=== PATIENT | male | born 1960 | race Caucasian/White ===

== ENCOUNTER → 2018-03-11 07:07 | Outpatient (CLI) | payer OTHER, SELFPAY ==
--- NOTE | 2018-03-11 | DI.US.S_ITS ---
PROCEDURE: US RENAL COMPLETE INDICATIONS: HISTORY LEFT RCC, PARTIAL NEPHRECTOMY TECHNIQUE: Real-time scanning was performed of the kidneys and bladder, with image documentation. COMPARISON: [facility], US, RENAL COMPLETE, 05/10/2015, 7:29. [facility], CT, ABDOMEN/PELVIS WITH CONTRAST, 02/20/2010, 16:50. [facility], US, RENAL COMPLETE, 03/12/2017, 8:57. FINDINGS: Kidneys: Kidneys are normal in size. Right kidney measures 10.3 cm long; left kidney measures 10.5 cm long. Right renal cortical thickness is 1.8 cm; left renal cortical thickness is 1.9 cm. Renal cortical echotexture is normal. No hydronephrosis or nephrolithiasis. No suspicious solid mass lesions. Stable appearance of left renal peripelvic cyst measuring 1.1 cm and there is additionally a new peripelvic cyst measuring 1.5 cm. Bladder: Pre-void bladder volume is 47 mL. Post-void residual is 24 mL. Pre-void images demonstrate no intraluminal masses or stones. On pre-void images, neither ureteral jets are noted with color Doppler interrogation. (Of note, ureteral jets may not be detectable in up to 25% of cases due to insufficient differences in specific gravity between ureteral and bladder urine). Miscellaneous: No free pelvic fluid. IMPRESSION: Left renal peripelvic cysts otherwise normal appearance of the kidneys. Dictated by: Kendell KAY Interpreted: Jona Petty MD on 03/11/2018 at 9:12 Approved by: Jona Petty M.D. on 03/11/2018 at 15:44
== END ==
PROVIDERS: Visit Provider Internal Medicine
DX: N28.1 Cyst of kidney, acquired (principal); Z85.528 Personal history of other malignant neoplasm of kidney
CPT/HCPCS: 76770

== ENCOUNTER → 2018-03-12 12:19 | Outpatient (CLI) | payer OTHER, SELFPAY ==
--- NOTE | 2018-03-12 | DI.RAD.S_ITS ---
PROCEDURE: XR CHEST 2V INDICATIONS: ACUTE BRONCHITIS TECHNIQUE: 2 views of the chest were acquired. COMPARISON: [facility], , CHEST 1 VIEW, 09/06/2008, 13:25. FINDINGS: Surgical changes and devices: None. Lungs and pleura: No pleural effusions or pneumothorax. Lungs are clear. Mediastinum: Mediastinal contours are normal. Heart size is normal. Bones and chest wall: No suspicious bony abnormalities. Soft tissues appear unremarkable. IMPRESSION: No pneumonia found, normal for age. Dictated by: Jona Petty M.D. on 03/12/2018 at 12:58 Approved by: Jona Petty M.D. on 03/12/2018 at 12:58
== END ==
PROVIDERS: PCP Internal Medicine; Visit Provider Internal Medicine
DX: J20.9 Acute bronchitis, unspecified (principal)
CPT/HCPCS: 71046

== ENCOUNTER → 2019-03-02 14:16 | Outpatient (ROUT) | payer OTHER, SELFPAY ==
[2019-03-02 15:54] LABS: Prostate Specific Antigen 1.04 ng/mL (0.10-4.00)
== END ==
PROVIDERS: PCP Internal Medicine; Visit Provider Internal Medicine
DX: Z00.00 Encounter for general adult medical examination without abnormal findings (principal)
CPT/HCPCS: 84153

== ENCOUNTER → 2019-03-05 08:37 | Outpatient (CLI) | payer OTHER, SELFPAY ==
--- NOTE | 2019-03-05 | DI.US.S_ITS ---
PROCEDURE: US RENAL COMPLETE INDICATIONS: MALIGNANT NEOPLASM OF UNSPECIFIED KIDENEY, EXCEPT RENAL PELV TECHNIQUE: Real-time scanning was performed of the kidneys and bladder, with image documentation. COMPARISON: [facility], CT, CHEST ABDOMEN PELVIS WITH CONTRAST, 08/09/2010, 8:24. [facility], US, RENAL COMPLETE, 03/12/2017, 8:57. [facility], US, US RENAL COMPLETE, 03/11/2018, 7:28. FINDINGS: Kidneys: Kidneys are normal in size. Right kidney measures 10.4 cm long; left kidney measures 10.3 cm long. Right renal cortical thickness is 1.3 cm; left renal cortical thickness is 1.5 cm. Renal cortical echotexture is normal. No hydronephrosis or nephrolithiasis. No suspicious solid mass lesions. A couple of simple appearing parapelvic cysts are noted in left kidney measuring 1.5 x 1.0 x 1.1 cm (previously 1.1 x 1.1 x 1 .1 cm) and 1.9 x 0.9 x 0.6 cm (previously 1.5 x 0.6 x 0.7 cm). Bladder: Pre-void bladder volume is 468 mL. Post-void residual is 52 mL. Pre-void images demonstrate no intraluminal masses or stones. On pre-void images, both ureteral jets are noted with color Doppler interrogation. (Of note, ureteral jets may not be detectable in up to 25% of cases due to insufficient differences in specific gravity between ureteral and bladder urine). Miscellaneous: No free pelvic fluid. IMPRESSION: 1. A couple of simple appearing parapelvic cysts in left kidney, slightly increased in size. No solid renal masses. 2. 52-mL post void residual in the urinary bladder. Dictated by: Lakeisha Strong M.D. on 03/05/2019 at 11:33 Approved by: Lakeisha Strong M.D. on 03/05/2019 at 11:39
== END ==
PROVIDERS: PCP Internal Medicine; Visit Provider Internal Medicine
DX: C64.9 Malignant neoplasm of unspecified kidney, except renal pelvis (principal); N28.1 Cyst of kidney, acquired
CPT/HCPCS: 76770

== ENCOUNTER → 2019-04-08 08:52 | Outpatient (CLI) | payer OTHER, SELFPAY ==
--- NOTE | 2019-04-08 | DI.RAD.S_ITS ---
PROCEDURE: XR WRIST RT MIN 3V INDICATIONS: R wrist pain TECHNIQUE: 4 views of the wrist were acquired. COMPARISON: [facility], , HAND 3V RIGHT, 03/21/2016, 9:09. [facility], , WRIST MINIMUM 3 VIEWS LEFT, 09/17/2010, 16:57. FINDINGS: Bones: No acute fractures or dislocations. No suspicious bony lesions. Trace degenerative changes of the first carpometacarpal and first metacarpal-phalangeal joints noted. 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 Scaphoid view: Scaphoid appears intact. Soft tissues: No suspicious soft tissue calcifications. IMPRESSION: No acute osseous abnormality of the right wrist. Trace degenerative changes of the right first carpometacarpal joint and right first metacarpal-phalangeal joint noted. Dictated by: Buck Miller M.D. on 04/08/2019 at 13:08 Approved by: Buck Miller M.D. on 04/08/2019 at 13:38
== END ==
PROVIDERS: PCP Internal Medicine; Visit Provider Internal Medicine
DX: M25.531 Pain in right wrist (principal)
CPT/HCPCS: 73110

== ENCOUNTER → 2019-04-23 07:32 | Outpatient (CLI) | payer OTHER, SELFPAY ==
--- NOTE | 2019-04-23 | DI.MRI.S_ITS ---
PROCEDURE: MR CERVICAL SPINE WO CON INDICATIONS: Radiculopathy, cervical region TECHNIQUE: Noncontrast sagittal T1 spin echo and T2 fast spin echo, sagittal STIR, foraminal oblique sagittal T2 fast spin echo, and axial gradient echo or T2 fast spin echo through the cervical spine. COMPARISON: [facility], SPINE CERVICAL MIN 4VW, 11/19/2012, 14:47. [facility], MR, C-SPINE WITHOUT CONTRAST, 03/28/2009, 8:18. [facility], MR, C-SPINE WITHOUT CONTRAST, 06/21/2016, 17:23. FINDINGS: Image quality: Excellent. Alignment and Curvature: There is normal bony alignment. Bone Marrow: Reactive endplate change is noted adjacent to the C5-C6 and C6-C7 discs. Spinal Cord: Visualized spinal cord has normal size and signal. No cerebellar tonsillar herniation. Paraspinous Soft Tissues: No paravertebral masses. Prevertebral soft tissues are normal in thickness. C2-C3: Loss of disc signal. No central stenosis. Mild left facet hypertrophy. Mild left neural foraminal narrowing. No neural compression. C3-C4: Loss of disc signal. No central stenosis. Mild left facet hypertrophy. Mild left neural foraminal narrowing. No neural compression. C4-C5: Loss of the signal. Mild, diffuse disc bulge. No central stenosis Mild bilateral facet hypertrophy. Mild right uncovertebral joint hypertrophy. Severe right and mild left neural foraminal narrowing with compression of the exiting right C5 nerve root. C5-C6: Loss of disc signal and height. Mild, diffuse disc bulge. Mild narrowing of the central canal. Mild bilateral facet hypertrophy. Moderate right and mild left uncovertebral joint hypertrophy. Severe right and moderate left neural foraminal narrowing with compression of the exiting right C6 nerve root. C6-C7: Loss of disc signal and height. Mild, diffuse disc bulge. Mild narrowing of the central canal. Mild bilateral facet hypertrophy. Mild bilateral uncovertebral joint hypertrophy. Severe bilateral neural foraminal narrowing and compression of the exiting C7 nerve roots. C7-T1: Normal appearance. IMPRESSION: 1. Multilevel degenerative disc disease. 2. Multilevel facet and uncovertebral arthropathy. 3. Mild C5-C6 and C6-C7 central canal narrowing. 4. Severe bilateral C6-C7 and neural foraminal narrowing. Severe right and moderate left C5-C6 with neural foraminal narrowing. Severe right and mild left C4-C5 neural foraminal narrowing. Mild left C2-C3 and C3-C4 neural foraminal narrowing. 5. Compression of the exiting right C5 nerve root, exiting right C6 nerve root and exiting bilateral C7 nerve roots secondary to neural foraminal narrowing. Dictated by: Zoya Yang MD, PhD on 04/23/2019 at 11:56 Approved by: Zoya Yang MD, PhD on 04/23/2019 at 12:20
== END ==
PROVIDERS: PCP Internal Medicine; Visit Provider Internal Medicine
DX: M47.22 Other spondylosis with radiculopathy, cervical region (principal); M50.121 Cervical disc disorder at C4-C5 level with radiculopathy; M48.02 Spinal stenosis, cervical region
CPT/HCPCS: 72141

== ENCOUNTER → 2019-05-20 06:46 | Outpatient (CLI) | payer OTHER, SELFPAY ==
--- NOTE | 2019-05-20 | DI.MRI.S_ITS ---
PROCEDURE: MR LUMBAR SPINE WO CON INDICATIONS: Radiculopathy, lumbar region TECHNIQUE: Noncontrast sagittal T1 spin echo and T2 fast echo, sagittal STIR, axial T1 and T2 fast spin echo through the lumbar spine. In cases with scoliosis, additional coronal T2 fast spin echo may be performed. COMPARISON: None. FINDINGS: Image quality: Excellent. Alignment and Curvature: There is normal bony alignment. Bone Marrow: Respiratory changes and adjacent to the L4-L5 and L5-S1 discs. No acute vertebral body compression fractures. Spinal Cord: Conus medullaris terminates at the L1 level. Visualized cord demonstrates normal signal and size. Paraspinous Soft Tissues: No paravertebral masses. L1-L2: Slight loss of the signal. Minimal, diffuse disc bulge. No central stenosis. No neural foraminal narrowing. No neural compression. L2-L3: Loss of signal and slight loss of disc height. Moderate, diffuse disc bulge. Small right central disc protrusion. Mild narrowing of the central canal. Mild bilateral neural foraminal narrowing. No neural compression. Fissure noted in the posterior anulus. L3-L4: A loss of the signal. Moderate, diffuse disc bulge. Mild narrowing of the central canal. Mild bilateral neural foraminal narrowing. No neural compression. L4-L5: Loss of signal and height. Moderate, diffuse disc bulge and small central disc protrusion. Mild narrowing of the central canal. Mild right and moderate left neural foraminal narrowing. No neural compression. Fissure noted in the posterior anulus. L5-S1: Loss of disc signal and slight loss of disc height. Mild, diffuse disc bulge. No central stenosis. Moderate right neural foraminal narrowing. No neural compression. Fissure noted in the posterior anulus. IMPRESSION: 1. Multilevel degenerative disc disease. 2. Mild L2-L3, L3-L4 and L4-L5 central canal narrowing. 3. Moderate right L5-S1 neural foraminal narrowing. Mild right and moderate left L4-L5 neural foraminal narrowing. Mild bilateral L2-L3 and L3-L4 neural foraminal narrowing. 4. No neural compression 5. L2-L3, L3-L4 and L4-L5 disc annulus fissures. Dictated by: Zoya Yang MD, PhD on 05/20/2019 at 11:47 Approved by: Zoya Yang MD, PhD on 05/20/2019 at 13:13
== END ==
PROVIDERS: PCP Internal Medicine; Visit Provider Internal Medicine
DX: M51.16 Intervertebral disc disorders with radiculopathy, lumbar region (principal); M51.17 Intervertebral disc disorders with radiculopathy, lumbosacral region; M48.061 Spinal stenosis, lumbar region without neurogenic claudication; M48.07 Spinal stenosis, lumbosacral region
CPT/HCPCS: 72148

== ENCOUNTER 2019-06-12 17:02 | Emergency (ER) | payer OTHER, SELFPAY ==
[2019-06-12 17:07] VITALS: BP 124/84; PULSE 79; RESP 18; TEMP 36.1; O2SAT 98; BMI 25.8
--- NOTE | 2019-06-12 17:12 | DI.RAD.S_ITS ---
PROCEDURE: XR CHEST 1V INDICATIONS: CHEST PAIN TECHNIQUE: One view of the chest was acquired. COMPARISON: [facility], CR, XR CHEST 2V, 03/12/2018, 12:04. FINDINGS: Surgical changes and devices: None. Lungs and pleura: Lungs are clear. No pleural effusions or pneumothorax. Mediastinum: Mediastinal contours appear normal. Heart size is normal. Bones and chest wall: No suspicious bony lesions. Overlying soft tissues appear unremarkable. IMPRESSION: No acute disease Dictated by: Wesley Hsieh M.D. on 06/12/2019 at 17:31 Approved by: Wesley Hsieh M.D. on 06/12/2019 at 17:32
[2019-06-12 17:45] LABS: Add Manual Diff / Slide Review NO; Basophils Absolute Auto 100 /uL (0-100); Basophils Percent Auto 0.9 % (0-2); Eosinophils Absolute Auto 600 /uL (0-450); Hematocrit 45.5 % (41-53); Hemoglobin 15.5 g/dL (13.5-17.5); Lymphocytes Absolute Auto 2300 /uL (1100-4500); Lymphocytes Percent Auto 27.1 % (25-40); Mean Corpuscular HGB Conc 34.1 % (30-36); Mean Corpuscular Hemoglobin 30.8 PG (26-34); Mean Corpuscular Volume 90.4 fL (80-100); Monocytes Absolute Auto 700 /uL (0-900); Monocytes Percent Auto 7.7 % (3-14); Neutrophils Absolute Auto 4900 /uL (1500-7000); Neutrophils Percent Auto 57.3 % (50-75); Platelet Count 248 X10^3/uL (150-400); Red Blood Cell Count 5.03 X10^6/uL (4.5-5.9); Red Cell Distribution Width 14.2 % (11.6-14.8); White Blood Cell Count 8.5 X10^3/uL (4.5-11.0)
[2019-06-12] MEDS: ASPIRIN 81 MG CHEW TAB 324 MG PO (17:51)
[2019-06-12] MEDS: SODIUM CHLORIDE 0.9% 1,000 ML 150 ML IV (17:52)
[2019-06-12 17:57] LABS: Alanine Aminotransferase 39 IU/L (<50); Albumin 4.7 g/dL (3.5-5.0); Albumin Globulin Ratio 1.6 (1.0-2.8); Alkaline Phosphatase 86 U/L (38-126); Aspartate Aminotransferase 33 IU/L (17-59); Bilirubin Total 0.6 mg/dL (0.2-1.3); Blood Urea Nitrogen 21 mg/dL (9-20); Calcium 9.5 mg/dL (8.4-10.2); Carbon Dioxide 25 mmol/L (22-32); Chloride 103 mmol/L (98-107); Creatine Kinase 60 U/L (55-170); Estimated Glomerular Filt Rate > 60.0 mL/min (>60); Globulin 2.9 g/dL (1.7-4.1); Glucose 111 mg/dL (70-100); HEMOLYSIS < 15 (0-50); Lipase 101 U/L (23-300); Potassium 4.3 mmol/L (3.4-5.1); Sodium 139 mmol/L (137-145); Total Protein 7.6 g/dL (6.3-8.2)
[2019-06-12 18:09] LABS: Troponin I < 0.012 ng/mL (0.01-0.034)
--- NOTE | 2019-06-12 18:13 | ED_ITS ---
HPI - Chest Pain General Chief Complaint: Chest Pain Stated Complaint: chest pain/pressure on left side x90 minutes ago Time Seen by Provider: 06/12/19 18:02 Source: patient Mode of arrival: Ambulatory Limitations: no limitations History of Present Illness HPI narrative: 58-year-old male former smoker presents with severe crushing anterior chest pressure with radiation to the left shoulder that started while at rest about 1 hour prior to arrival. He denies associated cardiac equivalent such as dizziness, weakness, lightheadedness nor high-risk features such as diaphoresis or exertional provocation. He denies any provocation or palliation. He states it happened while he was finishing up a tattoo while at work. He denies any history of the same. He does have a history of GERD and states this feels much different than any episode of GERD he has ever had. He denies any history of provocative testing or cardiac history. He denies recent travel, history of clot or cancer. MD complaint: chest pain Onset (ago): minute(s) Duration: constant Onset: during rest Pain location: substernal and left chest Severity: moderate Severity scale (1-10): 8 Quality: aching Pain radiation: LUE Relieving factors: nothing Exacerbating factors: nothing Associated symptoms: other Treatments prior to arrival chest pain: none Related Data Allergies Allergy/AdvReac Type Severity Reaction Status Date / Time Sulfa (Sulfonamide Allergy Unknown Verified 06/12/19 17:07 Antibiotics) [SULFA (SULFONAMIDE ANTIBIOTICS)] Review of Systems Constitutional Constitutional: Denies chills, Denies fatigue, Denies fever(s), Denies frequent falls, Denies lethargy and Denies weakness Eyes Eyes: Denies change in vision, Denies eye discharge, Denies irritation and Denies loss of vision ENT Ears, Nose, Mouth, and Throat: Denies change in voice, Denies dizziness, Denies neck pain, Denies sore throat and Denies throat swelling Cardiovascular Cardiovascular: Reports chest pain, Denies irregular heart rhythm, Denies lightheadedness, Denies palpitations, Denies dyspnea, Denies dyspnea on exertion and Denies orthopnea Respiratory Respiratory: Denies cough, Denies dyspnea, Denies dyspnea on exertion and Denies wheezing Gastrointestinal Gastrointestinal: Denies abdominal pain, Denies change in bowel habits, Denies diarrhea, Denies nausea and Denies vomiting Genitourinary Genitourinary: Denies hematuria, Denies flank pain, Denies urinary incontinence and Denies urinary urgency Musculoskeletal Musculoskeletal: Denies back pain, Denies muscle weakness, Denies neck pain, Denies numbness and Denies tingling Integumentary/Breasts Skin/Breast: Denies pruritus, Denies erythema, Denies rash and Denies wounds Neurologic Neurologic: Denies behavioral changes, Denies confusion, Denies dizziness, Denies frequent falls, Denies loss of vision, Denies numbness, Denies tingling and Denies weakness Psychiatric Psychiatric: Denies anxiety, Denies behavioral changes, Denies confusion, Denies depression, Denies homicidal ideation and Denies suicidal ideation Endocrine Endocrine: Denies fatigue, Denies flushing and Denies palpitations Hematologic/Lymphatic Hematologic/Lymphatic: Denies easy bruising Allergic/Immunologic Allergic/Immunologic: Denies urticaria, Denies throat swelling and Denies wheezing Patient History Medical History Breathing-related sleep disorder (Chronic) GERD (gastroesophageal reflux disease) (Chronic) Insomnia (Chronic) Restless legs syndrome (RLS) (Chronic) Snoring (Chronic) Social History Smoking Status: Former smoker Smoking Status: Former smoker alcohol intake frequency: 3 or more drinks per day Substance Use Type: marijuana Exam Narrative Exam Narrative: GENERAL: [58] year old patient appears stated age. Well- nourished, well-developed patient, in mild distress. HEAD: Atraumatic. Normocephalic. EYES: Pupils equal round and reactive. Extraocular motions intact. No scleral icterus. No injection or drainage. ENT: Nose without bleeding, purulent drainage. Throat without erythema, tonsillar hypertrophy or exudate. Airway patent. NECK: Trachea midline. Non tender CARDIOVASCULAR: Regular rate and rhythm without murmurs, gallops, or rubs. RESPIRATORY: Clear to auscultation. Breath sounds equal bilaterally. No wheezes, rales, or rhonchi. GASTROINTESTINAL: Abdomen soft, non-tender, nondistended. EXTREMITIES: No edema or joint tenderness. BACK: Nontender without deformity or crepitance. No flank tenderness. NEURO: AOx3. SKIN: No rash or erythema of visible areas Initial Vital Signs Initial Vital Signs: Vital Signs Temperature 97.0 F L 06/12/19 17:07 Pulse Rate 79 06/12/19 17:07 Respiratory Rate 18 06/12/19 17:07 Blood Pressure 124/84 06/12/19 17:07 Pulse Oximetry 98 06/12/19 17:07 Scores HEART Score Heart Score history: Highly Suspicious Heart Score EKG: Normal Heart Score Age: 45-64 years old Heart Score risk factors: 1-2 risk factors Heart Score troponin: < or = to normal limit Heart Score Total: 4 Course Orders Ordered: ED Orders 06/12/19 17:12 XR chest 1V Stat EKG-12 Lead Stat 06/12/19 17:35 Complete Blood Count AUTO DIFF Stat Comprehensive Metabolic Panel Stat Lipase Stat Troponin & CK Cardiac Panel Stat 06/12/19 18:27 EKG-12 Lead Stat Sodium Chloride (Normal Saline 0.9%) 1,000 mls @ 150 mls/hr IV CONT NITIN Last Admin: 06/12/19 17:52 Dose: 150 mls/hr Documented by: MARLY Discontinued Medications Aspirin (Aspirin Chew) 324 mg PO NOW ONE Stop: 06/12/19 17:13 Last Admin: 06/12/19 17:51 Dose: 324 mg Documented by: MARLY Nitroglycerin (Nitrostat) 0.4 mg SL [id number] PRN PRN Reason: Chest Pain Last Admin: 06/12/19 19:52 Dose: 0.4 mg Documented by: Admin: 06/12/19 18:54 Dose: 0.4 mg Documented by: Admin: 06/12/19 18:48 Dose: 0.4 mg Documented by: MARLY Reevaluation(s) Reevaluation #1: patient pain free after 2nd 0.4mg NG SL. Time: 19:07 Consultations Consultation #1: Dr. Souza - cannot keep given no access to stress test, limited echo and high risk story. Consultation #2: call to [facility]. No cardiac beds Consultation #3: [facility] happy to accept. Vital Signs Vital signs: Vital Signs - 8 hr 06/12/19 17:07 06/12/19 18:48 06/12/19 18:54 Temperature 97.0 F L Pulse Rate 79 62 69 Respiratory Rate 18 Blood Pressure 124/84 129/88 120/85 Blood Pressure [Left Arm] Pulse Oximetry 98 06/12/19 19:37 06/12/19 19:52 Temperature Pulse Rate 73 70 Respiratory Rate 18 Blood Pressure 134/77 Blood Pressure [Left Arm] 113/80 Pulse Oximetry 96 MDM - Chest Pain Lab Data Result diagrams: 06/12/19 17:35 06/12/19 17:35 Labs: Lab Results 06/12/19 06/12/19 Range/Units 17:35 17:35 WBC 8.5 (4.5-11.0) X10^3/uL RBC 5.03 (4.5-5.9) X10^6/uL Hgb 15.5 (13.5-17.5) g/dL Hct 45.5 (41-53) % MCV 90.4 (80-100) fL MCH 30.8 (26-34) PG MCHC 34.1 (30-36) % RDW 14.2 (11.6-14.8) % Plt Count 248 (150-400) X10^3/uL Neut % (Auto) 57.3 (50-75) % Lymph % (Auto) 27.1 (25-40) % [place] % (Auto) 7.7 (3-14) % Eos % (Auto) 7.0 H (2-4) % Baso % (Auto) 0.9 (0-2) % Neut # (Auto) 4900 (6291-8846) /uL Lymph # (Auto) 2300 (5345-5346) /uL [place] # (Auto) 700 (0-900) /uL Eos # (Auto) 600 H (0-450) /uL Baso # (Auto) 100 (0-100) /uL Sodium 139 (137-145) mmol/L Potassium 4.3 (3.4-5.1) mmol/L Chloride 103 (98-107) mmol/L Carbon Dioxide 25 (22-32) mmol/L BUN 21 H (9-20) mg/dL Creatinine 1.00 (0.66-1.25) mg/dL Estimated GFR > 60.0 (>60) mL/min BUN/Creatinine Ratio 21.0 (6-22) Glucose 111 H (70-100) mg/dL Calcium 9.5 (8.4-10.2) mg/dL Total Bilirubin 0.6 (0.2-1.3) mg/dL AST 33 (17-59) IU/L ALT 39 (<50) IU/L Alkaline Phosphatase 86 (38-126) U/L Total Creatine Kinase 60 (55-170) U/L CK-MB (CK-2) TNP CK-MB (CK-2) Rel Index TNP Troponin I < 0.012 (0.01-0.034) ng/mL Total Protein 7.6 (6.3-8.2) g/dL Albumin 4.7 (3.5-5.0) g/dL Globulin 2.9 (1.7-4.1) g/dL Albumin/Globulin Ratio 1.6 (1.0-2.8) Lipase 101 (23-300) U/L Imaging Data Chest x-ray: Radiologist's Impression: [address] [address] XRay Report Signed Patient: Dominik Gutierrez JMR#: [id number] : 2Acct:[id number] Age/Sex: 58 / MDate of Service: 06/12/19 Loc: ED Accession Number: [id number] Procedure: XR chest 1V Ordering Provider: Teresa Young D.O. PROCEDURE: XR CHEST 1V INDICATIONS: CHEST PAIN TECHNIQUE: One view of the chest was acquired. COMPARISON: [facility], , XR CHEST 2V, 03/12/2018, 12:04. FINDINGS: Surgical changes and devices: None. Lungs and pleura: Lungs are clear. No pleural effusions or pneumothorax. Mediastinum: Mediastinal contours appear normal. Heart size is normal. Bones and chest wall: No suspicious bony lesions. Overlying soft tissues appear unremarkable. IMPRESSION: No acute disease Dictated by: Wesley Hsieh M.D. on 06/12/2019 at 17:31 Approved by: Wesley Hsieh M.D. on 06/12/2019 at 17:32 ECG Data Interpretation: EKG is normal sinus rhythm rate [67 ] and free of any signs of ischemia or ectopy. No ST segmental elevation or depression. No T wave inversions Second EKG, no change MDM Narrative Medical decision making narrative: 58-year-old male with very concerning story and heart score of 4. Multiple nonishcemic EKGs. First troponin normal. Pain free after NG x2. Discussed with our in-house hospitalist but due to lack of access to stress test, limited access to echo and no in-house cardio he refuses admission. Next call to [facility] but no available beds. Call to [facility], R[facility]u Carson happy to accept. Discharge Plan Departure Patient Disposition: [facility] Clinical Impression: Chest pain Referrals: Jeremy Jerez MD [Primary Care Provider] -
[2019-06-12 18:48] VITALS: BP 129/88; PULSE 62
[2019-06-12] MEDS: NITROGLYCERIN 0.4 MG SL TAB SL ×3 (18:48→19:52)
[2019-06-12 18:54] VITALS: BP 120/85; PULSE 69
[2019-06-12 19:37] VITALS: BP 113/80; PULSE 73; RESP 18; O2SAT 96
[2019-06-12 19:52] VITALS: BP 134/77; PULSE 70
--- NOTE | 2019-06-12 20:02 | PC.NURSE ---
Pt started with chest pressure again after nitro. Provider aware. Gave last dose of nitro, with improvement of pressure.
[2019-06-12 21:14] VITALS: BP 125/84; PULSE 76; RESP 17; O2SAT 98
--- NOTE | 2019-07-24 20:13 | PC.NURSE ---
Pt was started on Normal saline, Pt had received a total of 525mls before transfer. Normal saline continued infusing upon transfer
== END 2019-06-12 21:15 | disposition short-term general hospital (02) ==
PROVIDERS: Emergency Medicine; Emergency Provider Emergency Medicine; PCP Internal Medicine
DX: R07.89 Other chest pain (principal)
CPT/HCPCS: 36415; 71045; 80053; 82550; 83690; 84484; 85025; 93005; 96360; 96361; 99285

== ENCOUNTER → 2020-02-03 12:27 | Outpatient (CLI) | payer OTHER, SELFPAY ==
--- NOTE | 2020-02-03 | DI.RAD.S_ITS ---
PROCEDURE: XR CERVICAL SPINE 4V OR 5V INDICATIONS: XR C-SPINE LAT W/F E TECHNIQUE: 5 views of the cervical spine were acquired. COMPARISON: None. FINDINGS: Bones: No fractures or dislocations to the T1 level. No suspicious bony lesions. There is normal range of motion between flexion and extension, with preserved normal bony alignment. Note is made of moderately severe C4-5 and near severe C5-6 and C6-7 degenerative disc height reduction. During flexion and extension imaging significant anterolisthesis or retrolisthesis is not associated, however. No prior trauma found. Soft tissues: Prevertebral soft tissues are normal in thickness. IMPRESSION: Moderately-severe to near severe degenerative changes from C4-5 through C6-7 but without evidence of ligamentous laxity. Spinal and foraminal stenosis, however, likely would be present at least at C5-6 and C6-7. Dictated by: Jona Petty M.D. on 02/03/2020 at 13:37 Approved by: Jona Petty M.D. on 02/03/2020 at 13:38
== END ==
PROVIDERS: Referring Provider Neurological Surgery; Visit Provider Neurological Surgery
DX: M47.12 Other spondylosis with myelopathy, cervical region (principal)
CPT/HCPCS: 72050

== ENCOUNTER → 2020-05-07 15:17 | Outpatient (CLI) | payer OTHER, SELFPAY ==
[2020-05-07 16:48] LABS: COVID19 -Nasal RAPID Negative (Negative)
== END ==
PROVIDERS: Referring Provider Neurological Surgery; Visit Provider Nurse Practitioner
DX: Z11.59 Encounter for screening for other viral diseases (principal)
CPT/HCPCS: 87635

== ENCOUNTER → 2020-05-20 14:46 | Outpatient (CLI) | payer OTHER, SELFPAY ==
--- NOTE | 2020-05-20 | DI.RAD.S_ITS ---
PROCEDURE: XR CERVICAL SPINE 1V INDICATIONS: Spondylosis TECHNIQUE: Single lateral view of the cervical spine acquired. COMPARISON: [facility], CR, XR CERVICAL SPINE 4V OR 5V, 02/03/2020, 12:20. FINDINGS: Bones: No fracture. Postsurgical change related to ACDF at C4-C7. Hardware appears intact. Expected postoperative alignment. Diffuse facet arthropathy noted. Mild narrowing of the C7-T1 disc space. Multilevel degenerative endplate sclerosis and spurring. Diffuse facet arthropathy. Straightening of the normal lordotic curvature. Soft tissues: There is prevertebral soft tissue swelling presumably related to recent surgery, although technically nonspecific IMPRESSION: Postoperative appearance as above Dictated by: Wesley Hsieh M.D. on 05/20/2020 at 15:22 Approved by: Wesley Hsieh M.D. on 05/20/2020 at 15:24
== END ==
PROVIDERS: Referring Provider Neurological Surgery; Visit Provider Neurological Surgery
DX: M47.12 Other spondylosis with myelopathy, cervical region (principal); M79.89 Other specified soft tissue disorders; Z98.1 Arthrodesis status
CPT/HCPCS: 72020

== ENCOUNTER → 2020-06-30 12:21 | Outpatient (CLI) | payer OTHER, SELFPAY ==
--- NOTE | 2020-06-30 12:23 | DI.US.S_ITS ---
PROCEDURE: US RENAL COMPLETE INDICATIONS: HISTORY LEFT KIDNEY CA TECHNIQUE: Real-time scanning was performed of the kidneys and bladder, with image documentation. COMPARISON: CT, CHEST ABDOMEN PELVIS WITH CONTRAST, 08/09/2010, 8:24. [facility], MR, MR LUMBAR SPINE WO CON, 05/20/2019, 7:03. [facility], US, US RENAL COMPLETE, 03/05/2019, 9:19. FINDINGS: Kidneys: Kidneys are normal in size. Right kidney measures 10 cm long; left kidney measures 10.1 cm long. Right renal cortical thickness is 1.6 cm; left renal cortical thickness is 1.9 cm. Renal cortical echotexture is normal. Left kidney column of Mehrdad. No hydronephrosis or nephrolithiasis. No suspicious solid mass lesions. Bladder: Pre-void bladder volume is 44 mL. Post-void residual is 27 mL. Pre-void images demonstrate no intraluminal masses or stones. On pre-void images, bilateral ureteral jets are noted with color Doppler interrogation. (Of note, ureteral jets may not be detectable in up to 25% of cases due to insufficient differences in specific gravity between ureteral and bladder urine). Miscellaneous: No free pelvic fluid. IMPRESSION: No renal mass seen. No hydronephrosis. Minimal postvoid residual 27 cc. Dictated by: Kendell KAY Interpreted: Neeraj James MD on 06/30/2020 at 13:27 Approved by: Neeraj James M.D. on 06/30/2020 at 14:52
== END ==
DX: R33.9 Retention of urine, unspecified (principal); Z85.828 Personal history of other malignant neoplasm of skin; Z85.528 Personal history of other malignant neoplasm of kidney
CPT/HCPCS: 76770

== ENCOUNTER → 2020-07-11 13:10 | Outpatient (CLI) | payer OTHER, SELFPAY ==
--- NOTE | 2020-07-11 13:15 | DI.RAD.S_ITS ---
PROCEDURE: XR CERVICAL SPINE 1V INDICATIONS: FUSION UPDATE TECHNIQUE: Single lateral view of the cervical spine acquired. COMPARISON: [facility], CR, XR CERVICAL SPINE 1V, 05/20/2020, 14:51. [facility], CR, XR CERVICAL SPINE 4V OR 5V, 02/03/2020, 12:20. FINDINGS: Bones: No fractures or dislocations to the T1 level. No suspicious bony lesions. C4 through C7 anterior fusion plating with interbody disc prosthesis devices at the 3 intervening levels. No change in normal alignment of devices. Soft tissues: No prevertebral soft tissue swelling. IMPRESSION: Stable positioning of anterior cervical fusion plate and interbody disc prosthesis devices maintaining normal alignment. Dictated by: Jona Petty M.D. on 07/11/2020 at 14:19 Approved by: Jona Petty M.D. on 07/11/2020 at 14:21
== END ==
PROVIDERS: Referring Provider Neurological Surgery; Visit Provider Neurological Surgery
DX: M47.12 Other spondylosis with myelopathy, cervical region (principal); M47.22 Other spondylosis with radiculopathy, cervical region; Z98.1 Arthrodesis status
CPT/HCPCS: 72020

== ENCOUNTER → 2021-12-14 07:59 | Outpatient (CLI) | payer OTHER, SELFPAY ==
[2021-12-14 09:02] LABS: Add Manual Diff / Slide Review NO; Basophils Absolute Auto 100 /uL (0-100); Basophils Percent Auto 0.9 % (0-2); Eosinophils Absolute Auto 400 /uL (0-450); Eosinophils Percent Auto 4.9 % (2-4); Hematocrit 41.3 % (41-53); Hemoglobin 13.7 g/dL (13.5-17.5); Lymphocytes Absolute Auto 2300 /uL (1100-4500); Lymphocytes Percent Auto 31.6 % (25-40); Mean Corpuscular HGB Conc 33.1 % (30-36); Mean Corpuscular Hemoglobin 29.6 PG (26-34); Mean Corpuscular Volume 89.3 fL (80-100); Monocytes Absolute Auto 600 /uL (0-900); Monocytes Percent Auto 8.2 % (3-14); Neutrophils Absolute Auto 3900 /uL (1500-7000); Neutrophils Percent Auto 54.4 % (50-75); Platelet Count 256 X10^3/uL (150-400); Red Blood Cell Count 4.62 X10^6/uL (4.5-5.9); Red Cell Distribution Width 14.2 % (11.6-14.8); White Blood Cell Count 7.2 X10^3/uL (4.5-11.0)
[2021-12-14 09:36] LABS: Alanine Aminotransferase 22 IU/L (<50); Albumin 3.7 g/dL (3.5-5.0); Albumin Globulin Ratio 1.4 (1.0-2.8); Alkaline Phosphatase 72 U/L (38-126); Aspartate Aminotransferase 27 IU/L (17-59); BUN Creatinine Ratio 21.5 (6-22); Bilirubin Total 0.5 mg/dL (0.2-1.3); Blood Urea Nitrogen 17 mg/dL (9-20); Calcium 8.4 mg/dL (8.4-10.2); Carbon Dioxide 28 mmol/L (22-32); Chloride 105 mmol/L (98-107); Cholesterol 201 mg/dL (140-199); Estimated Glomerular Filt Rate > 60 mL/min (>60); Globulin 2.6 g/dL (1.7-4.1); Glucose 104 mg/dL (80-110); HDL Cholesterol 53 mg/dL (40-60); HEMOLYSIS < 15 (0-50); LDL Cholesterol Calculated 119 mg/dL (<100); Potassium 4.9 mmol/L (3.4-5.1); Sodium 141 mmol/L (137-145); Total Protein 6.3 g/dL (6.3-8.2); Triglycerides 146 mg/dL (35-150)
== END ==
PROVIDERS: PCP Student in an Organized Health Care Education/Training Program; Referring Provider Student in an Organized Health Care Education/Training Program; Visit Provider Student in an Organized Health Care Education/Training Program
DX: M54.42 Lumbago with sciatica, left side (principal); M54.41 Lumbago with sciatica, right side; G89.29 Other chronic pain; F11.90 Opioid use, unspecified, uncomplicated; E78.49 Other hyperlipidemia
CPT/HCPCS: 36415; 80053; 80061; 85025

== ENCOUNTER 2022-01-23 14:29 | Emergency (ER) | payer OTHER, SELFPAY ==
[2022-01-23 15:03] VITALS: BP 139/89; PULSE 75; RESP 17; TEMP 36.9; O2SAT 100
--- NOTE | 2022-01-23 15:11 | DI.US.S_ITS ---
PROCEDURE: US PERIPH VENOUS LOW EXTREM LT INDICATIONS: left leg injury/pain in calf TECHNIQUE: Real-time imaging, as well as color and pulse Doppler interrogation, were performed of the lower extremity deep veins from the inguinal ligament to the popliteal fossa. COMPARISON: None. FINDINGS: The common femoral, femoral and popliteal veins are normally compressible, and free of intraluminal thrombus. Color and pulse Doppler demonstrate normal phasic intraluminal flow. There is normal augmentation response to distal compression maneuver. Complex hypoechoic area within medial soft tissue of left proximal calf region is seen measures 4 x 4.4 x 1.9 cm in size. No internal vascularity is seen. Complex hypoechoic area also seen involving medial aspect of left knee soft tissue and measures 4.3 x 1.2 x 3.3 cm in size. No internal vascularity is noted. IMPRESSION: 1. No evidence of DVT in visualized left lower extremity veins. 2. Avascular hypoechoic area in medial left knee and left proximal calf soft tissue which may represent areas of organizing hematoma. The appearance is not typical for abscess collection. Dictated by: Hubert Montes M.D. on 01/23/2022 at 16:22 Approved by: Hubert Montes M.D. on 01/23/2022 at 16:24
[2022-01-23 16:36] VITALS: BP 140/87; PULSE 74; O2SAT 96
[2022-01-23] MEDS: KETOROLAC 30 MG/ML VIAL 15 MG IM (16:59)
--- NOTE | 2022-01-23 17:07 | PC.NURSE ---
pt states he was moving his house when he stepped weird and felt like his knee was going to give out and his calf hurt. symptoms have been getting worse since then. he visited his pcp and had xray. with extreme calf pain today, was recommended to come to ED to rule out blood clot. pt has lump in back of calf, tender to palpation and swelling around knee. knee joint is stable
--- NOTE | 2022-01-23 17:37 | ED.LOWEXIN ---
HPI - Extremity Injury (Lower) <MELISSA Baker - Last Filed: 01/23/22 19:36> General Chief Complaint: Extremity Injury, Lower Stated Complaint: LEFT LEG INJURY/BLOOD CLOT? Time Seen by Provider: 01/23/22 16:33 Source: patient Mode of arrival: Ambulatory History of Present Illness HPI Narrative: This is a 61-year-old male who presents to the emergency department complaining of left knee pain for approximately 3 weeks when he stepped on something and felt like his knee was going to give out and he felt sharp left calf pain immediately. Patient states this happened a couple of days ago and since then his pain and symptoms have been getting worse. He endorses a knot in his left calf which is tender and he is concerned about a blood clot. He denies any history of blood clots, he is not a smoker, denies any history of coronary artery disease, does not take any blood thinners has a history of back pain, muscle spasms and now left leg tenderness. He denies any recent fever or lower extremity swelling. Related Data Previous Rx's Medication Instructions Recorded ketorolac 10 mg tablet 10 mg PO Q8H PRN pain #14 tabs 01/23/22 methocarbamol 500 mg tablet 500 mg PO TID PRN muscle spasm #20 01/23/22 tabs Allergies Allergy/AdvReac Type Severity Reaction Status Date / Time Sulfa (Sulfonamide Allergy Unknown Verified 01/23/22 15:06 Antibiotics) [SULFA (SULFONAMIDE ANTIBIOTICS)] Review of Systems <MELISSA Baker - Last Filed: 01/23/22 19:36> Review of Systems Narrative: General: denies fever, chills, malaise, sweats, fatigue Head/Neck: denies headache, neck pain, dizziness Eyes: denies visual changes, eye pain Cardio: denies chest pain, palpitations, edema Respiratory: denies dyspnea, cough, orthopnea GI: denies abdominal pain, nausea, vomiting, or diarrhea : denies dysuria, hematuria, urinary retention, frequency or incontinence MSK: denies joint pain, muscle weakness, endorses left calf tenderness with a bump and pain Skin: denies rash, itching, skin lesions or other Neuro: denies numbness, tingling Patient History <MELISSA Baker - Last Filed: 01/23/22 19:36> Medical History Breathing-related sleep disorder GERD (gastroesophageal reflux disease) History of kidney cancer Insomnia Raynauds syndrome Restless legs syndrome (RLS) Snoring Social History Smoking Status: Former smoker Smoking Status: Former smoker alcohol intake frequency: 3 or more drinks per day Substance Use Type: marijuana Exam <MELISSA Baker - Last Filed: 01/23/22 19:36> Narrative Exam Narrative: Independently reviewed vitals signs and nursing notes. General: cooperative, comfortable, in no acute distress, well groomed Head: atraumatic, symmetrical facial expressions Neck: supple Eyes: equal round and reactive, EOMI, conjunctiva normal Nose: nares patent, no rhinorrhea Mouth/Throat: moist mucus membranes Cardiovascular: regular rate and rhythm, no peripheral edema, warm extremities Respiratory: normal effort, able to speak in complete sentences, no audible wheezing, stridor, or rales. No retractions or tachypnea. GI: abdomen soft, nontender to palpation, nondistended, no masses, no exquisite tenderness with exam, without guarding or rebound. MSK: moves all extremities, neurovascularly intact, no weakness, normal tone, palpable tender lump in medial aspect of left gastrocnemius, patient endorses pain with dorsiflexion and could only dorsiflex approximately 50%, no difficulty with plantar extension, no pain with plantar extension. PT and DP pulses in left foot are 2+, without edema, brisk cap refill, no peripheral edema. Patient does have a suprapatellar effusion which is palpable, obvious fluid wave to palpation, sensation to bilateral lower extremities is equal, bilateral leg strength appears equal as well. Skin: brisk capillary refill, no rash, no erythema Neuro: normal speech and cognition, A&O x3 Psych: mental status is grossly normal, congruent mood, normal affect, pleasant and cooperative Initial Vital Signs Initial Vital Signs: Vital Signs Temperature 98.4 F 01/23/22 15:03 Pulse Rate 75 01/23/22 15:03 Respiratory Rate 17 01/23/22 15:03 Blood Pressure 139/89 01/23/22 15:03 Pulse Oximetry 100 01/23/22 15:03 Oxygen Delivery Method 01/23/22 15:03 <Cammy Hollins MD - Last Filed: 01/28/22 18:01> Initial Vital Signs Initial Vital Signs: Vital Signs Temperature 98.4 F 01/23/22 15:03 Pulse Rate 75 01/23/22 15:03 Respiratory Rate 17 01/23/22 15:03 Blood Pressure 139/89 01/23/22 15:03 Pulse Oximetry 100 01/23/22 15:03 Oxygen Delivery Method 01/23/22 15:03 Scores <MELISSA Baker - Last Filed: 01/23/22 19:36> Wells' Criteria for DVT Active Cancer (Treatment within 6 months): No Bedridden recently >3 days or major surgery within 4 weeks: No Calf Swelling >3cm compared to other leg: No Collateral (nonvericose) superficial veins present: No Entire leg swollen: No Pitting edema, confined to symtomatic leg: No Paralysis, paresis, or recent plaster immobilization of ext: No Previously documented DVT: No Alternative dx to DVT as likely or more likely: Yes Course <MELISSA Baker - Last Filed: 01/23/22 19:36> Orders Ordered: Discontinued Medications Ketorolac Tromethamine (Ketorolac 30 Mg/Ml Vial) 15 mg IM NOW ONE Stop: 01/23/22 16:51 Last Admin: 01/23/22 16:59 Dose: 15 mg Documented By: RLS Vital Signs Vital signs: Vital Signs - 8 hr 01/23/22 15:03 01/23/22 16:36 01/23/22 16:36 Temperature 98.4 F Pulse Rate 75 74 Respiratory Rate 17 Blood Pressure 139/89 140/87 Pulse Oximetry 100 96 Oxygen Delivery Method Room Air <Cammy Hollins MD - Last Filed: 01/28/22 18:01> Orders Ordered: Discontinued Medications Ketorolac Tromethamine (Ketorolac 30 Mg/Ml Vial) 15 mg IM NOW ONE Stop: 01/23/22 16:51 Last Admin: 01/23/22 16:59 Dose: 15 mg Documented By: RLS Vital Signs Vital signs: Vital Signs - 8 hr 01/23/22 15:03 01/23/22 16:36 01/23/22 16:36 Temperature 98.4 F Pulse Rate 75 74 Respiratory Rate 17 Blood Pressure 139/89 140/87 Pulse Oximetry 100 96 Oxygen Delivery Method Room Air MDM - Extremity Injury (Lower) <Aleta Haji [facility] - Last Filed: 01/23/22 19:36> Imaging Data CT scan - abdomen/pelvis: Radiologist's Impression: PROCEDURE:? US PERIPH VENOUS LOW EXTREM LT ? INDICATIONS:? left leg injury/pain in calf ? TECHNIQUE:? Real-time imaging, as well as color and pulse Doppler interrogation, were performed of the lower extremity deep veins from the inguinal ligament to the popliteal fossa.? ? COMPARISON:? None. ? FINDINGS:? The common femoral, femoral and popliteal veins are normally compressible, and free of intraluminal thrombus.? Color and pulse Doppler demonstrate normal phasic intraluminal flow.? There is normal augmentation response to distal compression maneuver. ? ? Complex hypoechoic area within medial soft tissue of left proximal calf region is seen measures 4 x 4.4 x 1.9 cm in size.? No internal vascularity is seen. ? Complex hypoechoic area also seen involving medial aspect of left knee soft tissue and measures 4.3 x 1.2 x 3.3 cm in size.? No internal vascularity is noted. ? IMPRESSION:? 1. No evidence of DVT in visualized left lower extremity veins. 2. Avascular hypoechoic area in medial left knee and left proximal calf soft tissue which may represent areas of organizing hematoma.? The appearance is not typical for abscess collection.? ? ? Dictated by: Hubert Montes M.D. on 01/23/2022 at 16:22 ? ? Approved by: Hubert Montes M.D. on 01/23/2022 at 16:24 ? [facility] Narrative Medical decision making narrative: This is a 61-year-old male who presents to the emergency department after he experienced sharp left calf pain while stepping on something in a twisting motion injuring his left calf 2 days ago. He came in for concern for a blood clot about his tenderness over a bump on his left calf. Ultrasound peripheral venous of his left lower extremity shows no evidence of DVT in visualize left lower extremity veins, avascular hyperechoic area in the left knee and left proximal calf soft tissue which may represent an organizing hematoma. Patient has left calf tenderness and a palpable ball of tissue concerning for gastrocnemius tear. Reassured patient that this is not a blood clot, he does not have any peripheral edema, his PT and DP pulses are 2+, he does not have many risk factors for blood clots. This is most likely a gastrocnemius tear, patient experiences pain with dorsiflexion, no tenderness to plantar extension. Recommend patient follow-up with orthopedics if continuing to get worse, he was given Toradol in the emergency department and encouraged to use Voltaren gel and muscle relaxers as needed for his pain. He was prescribed methocarbamol and Toradol p.o.. Patient understands to follow-up with [facility], discussed a heel lift for his shoe to see if this helps otherwise to avoid strenuous activity and follow-up with primary care. Patient is appropriate and amenable to discharge home. Vital signs are stable on repeat examination is unremarkable. Patient has been informed of results. Patient has been given strict return to ER precautions for any new or worsening symptoms. Patient understands to follow up closely with outpatient providers as instructed. Patient understands plan and agrees to discharge home. All questions and concerns answered at this time. Discharge Plan Departure Patient Disposition: Home Clinical Impression: Effusion of left knee joint Gastrocnemius muscle tear Qualifiers: Encounter type: initial encounter Laterality: left Qualified Code(s): S86.112A - Strain of other muscle(s) and tendon(s) of posterior muscle group at lower leg level, left leg, initial encounter Instructions: Calf Muscle Strain, DI for Knee Effusion Activity Restrictions/Additional Instructions: *You have been diagnosed with a gastrocnemius muscle tear on the left. This is likely the bump in your left calf. Please try warm compresses, gentle activity, please do not exert yourself or have any strenuous activity over the next few days. You can try a lift in your shoe on the heel aspect to see if that helps. Please follow-up at [facility] for evaluation your left knee injury with effusion. Thank you for trusting us with your care, I hope that your left knee starts feeling better soon. *What to do: *Please continue to take your regular medications as directed. [x ] New medication prescriptions sent to your pharmacy: [ [facility]] [ ] New medication written as a paper prescription [ ] No new medications given *Please follow up with your primary care provider in 2-3 days, call for an appointment. Let them know you were seen in the Emergency Department and that we asked that you be seen for follow-up. We will electronically transmit a record of today's note if your PCP is in our system *If you do not have a primary care provider please contact [phone] to establish care with one of the [facility] primary care providers. *Return to Emergency Department if you should have any new, worsening, or concerning symptoms, such as [fever greater than 101F, chills, worsening pain, persistent vomiting or other bothersome symptoms]. Prescriptions: New methocarbamol 500 mg tablet 500 mg PO TID PRN (Reason: muscle spasm) Qty: 20 0RF ketorolac 10 mg tablet 10 mg PO Q8H PRN (Reason: pain) Qty: 14 0RF Referrals: [facility] [Provider Group] Shea Lucia DO [Primary Care Provider] - Visit Report Forms: Patient Portal/API <Cammy Hollins MD - Last Filed: 01/28/22 18:01> Cosign ED Attending Deniseature Attestation: I was immediately available in the department for consultation throughout this patient's visit. I agree with documentation as above. Cammy Hollins MD
== END 2022-01-23 17:09 | disposition home or self-care (01) ==
PROVIDERS: Emergency Provider Nurse Practitioner Critical Care Medicine; PCP Student in an Organized Health Care Education/Training Program
DX: M25.462 Effusion, left knee (principal); S86.112A Strain of other muscle(s) and tendon(s) of posterior muscle group at lower leg level, left leg, initial encounter; X50.1XXA Overexertion from prolonged static or awkward postures, initial encounter
CPT/HCPCS: 93971; 96372; 99283; J1885

== ENCOUNTER 2022-02-06 13:15 | Emergency (ER) | payer OTHER, SELFPAY ==
[2022-02-06 13:18] VITALS: BP 144/82; PULSE 87; RESP 16; TEMP 36.3; O2SAT 97; BMI 26.6
[2022-02-06 15:51] VITALS: BP 132/85; PULSE 74; O2SAT 97
[2022-02-06 16:00] VITALS: PULSE 72; RESP 20
--- NOTE | 2022-02-06 16:18 | PC.NURSE ---
Pt reports moving 4 weeks ago when pain behind his left leg began. He reports it as constant and that radiates both distally and proximally with some numbness to the top of the left foot. No discoloration or swelling noted. A small lump is felt on the back of his left calf.
--- NOTE | 2022-02-06 20:31 | ED.EXTPRO ---
HPI - Extremity Problem <MELISSA Baker - Last Filed: 02/06/22 20:58> General Chief complaint: Extremity Problem,Nontraumatic Stated complaint: States he might have blood clot L leg Time Seen by Provider: 02/06/22 15:27 History of Present Illness HPI Narrative: This is a 61-year-old male presents to the emergency department with concern for blood clot in left leg due to lump on his lower extremity with palpable tenderness. Patient was seen in the emergency department on 01/23/2022 with concern for a blood clot then, he had an ultrasound completed which did not show any evidence of DVT, and was found to have a partial gastrocnemius tear without Achilles tendinitis or tendinopathy at that time. He returns today with a tender bump with concern for blood clot. He denies any sensation changes, any dependent edema, states the medication he was prescribed last time was helpful and he thinks he needs a knee replacement which could be contributing to his pain. He denies any weakness, any new trauma, denies any pain with dorsiflexion or plantar extension and states that overall his pain has improved since it started. Related Data Previous Rx's Medication Instructions Recorded ketorolac 10 mg tablet 10 mg PO Q8H PRN pain #14 tabs 01/23/22 methocarbamol 500 mg tablet 500 mg PO TID PRN muscle spasm #20 01/23/22 tabs diclofenac sodium 1 % topical gel 4 g topical QID PRN leg pain #100 02/06/22 grams ketorolac 10 mg tablet 10 mg PO TID PRN pain 5 days #14 02/06/22 tabs methocarbamol 500 mg tablet 500 mg PO BEDTIME #20 tabs 02/06/22 Allergies Allergy/AdvReac Type Severity Reaction Status Date / Time Sulfa (Sulfonamide Allergy Unknown Verified 01/23/22 15:06 Antibiotics) [SULFA (SULFONAMIDE ANTIBIOTICS)] Review of Systems <MELISSA Baker - Last Filed: 02/06/22 20:58> Review of Systems Narrative: Review of systems is negative for acute abnormalities unless otherwise noted in HPI Patient History <MELISSA Baker - Last Filed: 02/06/22 20:58> Medical History Breathing-related sleep disorder GERD (gastroesophageal reflux disease) History of kidney cancer Insomnia Raynauds syndrome Restless legs syndrome (RLS) Snoring Social History Smoking Status: Former smoker Smoking Status: Former smoker alcohol intake frequency: 3 or more drinks per day Substance Use Type: marijuana Exam <MELISSA Baker - Last Filed: 02/06/22 20:58> Narrative Exam Narrative: Reviewed vitals signs and nursing notes. General: cooperative, comfortable, in no acute distress, well groomed HEENT: symmetrical facial expressions, moist mucous membranes Cardiovascular: regular rate and rhythm, no peripheral edema, warm extremities Respiratory: normal effort, able to speak in complete sentences, without wheezing, stridor, or abnormal breath sounds. No retractions or tachypnea. GI: abdomen soft, nontender to palpation, nondistended, without masses, rebound tenderness or exquisite tenderness with exam. MSK: moves all extremities, neurovascularly intact, no weakness, normal tone Skin: brisk capillary refill, without pallor or erythema, no dependent edema, left lower extremity with palpable tenderness proximal to Achilles tendon and distal to the majority of gastrocnemius. I do not suspect DVT this is most likely a muscle strain with ongoing pain Neuro: normal speech and cognition, A&O x3, ambulatory, clear speech Psych: mental status is grossly normal, congruent mood, normal affect, pleasant and cooperative Initial Vital Signs Initial Vital Signs: Vital Signs Temperature 97.4 F L 02/06/22 13:18 Pulse Rate 87 02/06/22 13:18 Respiratory Rate 16 02/06/22 13:18 Blood Pressure 144/82 H 02/06/22 13:18 Pulse Oximetry 97 02/06/22 13:18 Oxygen Delivery Method 02/06/22 13:18 <Teresa Young DO - Last Filed: 02/10/22 08:52> Initial Vital Signs Initial Vital Signs: Vital Signs Temperature 97.4 F L 02/06/22 13:18 Pulse Rate 87 02/06/22 13:18 Respiratory Rate 16 02/06/22 13:18 Blood Pressure 144/82 H 02/06/22 13:18 Pulse Oximetry 97 02/06/22 13:18 Oxygen Delivery Method 02/06/22 13:18 Course <MELISSA Baker - Last Filed: 02/06/22 20:58> Vital Signs Vital signs: Vital Signs - 8 hr 02/06/22 13:18 02/06/22 15:51 02/06/22 15:51 Temperature 97.4 F L Pulse Rate 87 74 Respiratory Rate 16 Blood Pressure 144/82 H 132/85 Pulse Oximetry 97 97 Oxygen Delivery Method Room Air 02/06/22 16:00 Temperature Pulse Rate 72 Respiratory Rate 20 Blood Pressure Pulse Oximetry Oxygen Delivery Method <Teresa Young DO - Last Filed: 02/10/22 08:52> Vital Signs Vital signs: Vital Signs - 8 hr 02/06/22 13:18 02/06/22 15:51 02/06/22 15:51 Temperature 97.4 F L Pulse Rate 87 74 Respiratory Rate 16 Blood Pressure 144/82 H 132/85 Pulse Oximetry 97 97 Oxygen Delivery Method Room Air 02/06/22 16:00 Temperature Pulse Rate 72 Respiratory Rate 20 Blood Pressure Pulse Oximetry Oxygen Delivery Method MDM - Extremity (Nontraumatic) <MELISSA Baker - Last Filed: 02/06/22 20:58> MDM Narrative Medical decision making narrative: This is a 61-year-old male who presents to the emergency department with tenderness to his left lower extremity following his gastrocnemius tear on 01/23/2022 with concern for a DVT. Patient does not have any tenderness along the deep vein system, no dependent edema, no ecchymosis, erythema, or progressive symptoms. His exam does not show any evidence of DVT and after we discussed repeating this test and how it will unlikely be helpful he agrees and requests refill of his methocarbamol because it has been the most helpful for his pain. He was also prescribed p.o. Toradol for his muscle strain encouraged to follow-up at [facility] for another evaluation as needed. Patient states he thinks he needs a knee replacement. Encouraged patient to follow-up with his primary care provider. Patient is appropriate and amenable to discharge home. Vital signs are stable on repeat examination is unremarkable. Patient has been informed of results. Patient has been given strict return to ER precautions for any new or worsening symptoms. Patient understands to follow up closely with outpatient providers as instructed. Patient understands plan and agrees to discharge home. All questions and concerns answered at this time. Discharge Plan Departure Patient Disposition: Home Clinical Impression: Gastrocnemius muscle tear, Muscle spasm Instructions: Calf Muscle Strain Activity Restrictions/Additional Instructions: *You have been diagnosed with a calf muscle strain with associated tenderness of the soft tissues. This could be strain tendinitis related to your injury which is resolving. Please use topical diclofenac as needed, follow-up with [facility] regarding your knee injury and talk to Shea about any outpatient therapies like imaging or physical therapy that you may need. Thank you for trusting us with your care, I do not think that this is a blood clot, if you have swelling of your lower extremity which is progressive then please return to the emergency department for an evaluation of or ultrasound. I hope you feel better soon. Please use Tylenol in addition to those medications to help treat your pain. *What to do: *Please continue to take your regular medications as directed. [ x] New medication prescriptions sent to your pharmacy: [[facility]] [ ] New medication written as a paper prescription [ ] No new medications given *Please follow up with your primary care provider in 2-3 days, call for an appointment. Let them know you were seen in the Emergency Department and that we asked that you be seen for follow-up. We will electronically transmit a record of today's note if your PCP is in our system *If you do not have a primary care provider please contact [phone] to establish care with one of the [facility] primary care providers. *Return to Emergency Department if you should have any new, worsening, or concerning symptoms, such as [fever greater than 101F, chills, worsening pain, persistent vomiting or other bothersome symptoms]. Prescriptions: New ketorolac 10 mg tablet 10 mg PO TID PRN (Reason: pain) 5 Days Qty: 14 0RF methocarbamol 500 mg tablet 500 mg PO BEDTIME Qty: 20 0RF diclofenac sodium 1 % gel 4 g topical QID PRN (Reason: leg pain) Qty: 100 0RF Rx Instructions: Apply of pain up to 4 times daily No Action methocarbamol 500 mg tablet 500 mg PO TID PRN (Reason: muscle spasm) Qty: 20 0RF ketorolac 10 mg tablet 10 mg PO Q8H PRN (Reason: pain) Qty: 14 0RF Referrals: [facility] [Provider Group] Shea Lucia DO [Primary Care Provider] - Visit Report Forms: Patient Portal/API <Teresa Young DO - Last Filed: 02/10/22 08:52> Cosign ED Attending Alice Attestation: I was immediately available in the department for consultation. Documentation has been reviewed.
== END 2022-02-06 16:18 | disposition home or self-care (01) ==
PROVIDERS: Emergency Provider Nurse Practitioner Critical Care Medicine; PCP Student in an Organized Health Care Education/Training Program
DX: S86.112A Strain of other muscle(s) and tendon(s) of posterior muscle group at lower leg level, left leg, initial encounter (principal); M62.831 Muscle spasm of calf
CPT/HCPCS: 99281

== ENCOUNTER → 2022-06-14 15:06 | Outpatient (CLI) | payer OTHER, SELFPAY ==
--- NOTE | 2022-06-14 15:10 | DI.RAD.S_ITS ---
PROCEDURE: XR CERVICAL SPINE 1V INDICATIONS: CERVICAL REGION, FUSION CHECK TECHNIQUE: Single lateral view of the cervical spine acquired. COMPARISON: [facility], CR, XR CERVICAL SPINE 1V, 07/11/2020, 13:19. [facility], CR, XR CERVICAL SPINE 1V, 05/20/2020, 14:51. FINDINGS: Bones: No fractures or dislocations to the C7 level. C4-C7 ACDF with intervertebral body spacers. Hardware is stable. No hardware fracture. No suspicious bony lesions. Soft tissues: No prevertebral soft tissue swelling. IMPRESSION: Stable appearance of the C4-C7 ACDF on this single projection. Dictated by: Neeraj James M.D. on 06/14/2022 at 16:13 Approved by: Neeraj James M.D. on 06/14/2022 at 16:14
== END ==
PROVIDERS: PCP Student in an Organized Health Care Education/Training Program; Referring Provider Neurological Surgery; Visit Provider Neurological Surgery
DX: M47.12 Other spondylosis with myelopathy, cervical region (principal); Z98.1 Arthrodesis status
CPT/HCPCS: 72020

== ENCOUNTER 2022-11-05 08:15 | Emergency (ER) | payer OTHER, SELFPAY ==
[2022-11-05 08:24] VITALS: BP 141/90; PULSE 80; RESP 16; TEMP 36.6; O2SAT 99; BMI 25.8
--- NOTE | 2022-11-05 08:51 | ED_ITS ---
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 Patient presents with complaint of right eye irritation and feeling like something is in the tear duct for the past week. He states he is had redness, tearing like drainage for the past week and in the morning when he presses on his eyelid will have a large amount. No purulent drainage. No fevers. He is had some swelling and redness of the eyelid and surrounding area. He states it seems irritated. He does not notice a big change in his vision but did marvin reciate that it is different on the visual acuity testing. Patient states he is not had similar symptoms recently. He states he had a corneal abrasion from a piece of wheat grass about 10 or 20 years ago he states that felt a little bit different. States it really feels like there is something in his eye. He is not been able to visualize anything. 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 Patient states he wears glasses but no contacts. He does get an annual eye exam. Patient states he takes prescription medications for his neuropathy. He notes he has some persistent decrease in his fine motor skills of his hands after his cervical fusion in 2019. Patient states prior cervical fusion. No other surgeries. Allergic to sulfa. Former tobacco, occasional THC no other illicit. Patient states tetanus is up-to-date. Related Data Patient tetanus UTD: Yes Previous Rx's Medication Instructions Recorded ketorolac 10 mg tablet 10 mg PO Q8H PRN pain #14 tabs 01/23/22 methocarbamol 500 mg tablet 500 mg PO TID PRN muscle spasm #20 01/23/22 tabs diclofenac sodium 1 % topical gel 4 g topical QID PRN leg pain #100 02/06/22 grams methocarbamol 500 mg tablet 500 mg PO BEDTIME #20 tabs 02/06/22 ofloxacin 0.3 % eye drops 2 drp EYE-RIGHT .q4wa 10 days #5 mL 11/05/22 Allergies Allergy/AdvReac Type Severity Reaction Status Date / Time Sulfa (Sulfonamide Allergy Unknown Verified 11/05/22 08:26 Antibiotics) [SULFA (SULFONAMIDE ANTIBIOTICS)] Review of Systems Review of Systems ROS Unobtainable: All systems reviewed & are unremarkable except as noted in HPI and below Patient History Medical History Breathing-related sleep disorder GERD (gastroesophageal reflux disease) History of kidney cancer Insomnia Raynauds syndrome Restless legs syndrome (RLS) Snoring Social History Smoking Status: Former smoker Smoking Status: Former smoker alcohol intake frequency: other Substance Use Type: marijuana Exam Narrative Exam Narrative: GEN: well nourished, well appearing male, alert and oriented x 3, patient appears to be in mild distress. HEENT: Atraumatic, pupils are equal round reactive to light, extraocular movements are intact, nares are clear, TMs are clear with no fluid, there is no conjunctival pallor. Throat is clear without any exudates, erythema, tonsillar enlargement or uvular deviation Visual acuity: right 20/40, left 20/25 without correction. General: no globe trauma Eyelids: normal inspection on left, right has slight erythema and slight swelling of the lower lid, no periorbital swelling, eyelids everted for exam on right. Conjunctiva/Sclera: normal inspection on the left, patient has a injection of the conjunctiva on the right less so the sclera. Corneas: normal inspection, examined with fluroscein on right with punctate uptake throughout the sclera. No uptake, abrasions or ulcerations appreciated over the cornea. EOM: intact, no palsy/entrapment Pupils: PERRL, normal accomadation, pupil normal Anterior Chambers: normal inspection, no hypema Posterior: normal fundoscopic on bilaterally, slightly difficult nondilated exam HEART: Regular rate and rhythm without murmur, clicks, rubs. No carotid bruits, pulses are equal in upper and lower extremities LUNGS:Lungs clear to auscultation, no wheezes, rales, crackles, chest moves symmetrically ABD:bowel sounds normal, soft, non-tender, no guarding, rebound, rigidity, no masses noted, no hepatosplenomegaly MSCL: full range of motion, normal gait NEURO:CN 2-12 intact, sensation normal SKIN: No rash, erythema or other skin changes noted accept of the right [place]. Initial Vital Signs Initial Vital Signs: Vital Signs Temperature 97.8 F 11/05/22 08:24 Pulse Rate 80 11/05/22 08:24 Respiratory Rate 16 11/05/22 08:24 Blood Pressure 141/90 H 11/05/22 08:24 Pulse Oximetry 99 11/05/22 08:24 Oxygen Delivery Method Room Air 11/05/22 08:24 Course Orders Ordered: Discontinued Medications Fluorescein Sodium (Fluorescein 1 Mg Strip) 1 mg EYE-BOTH NOW ONE Stop: 11/05/22 08:53 Last Admin: 11/05/22 09:04 Dose: 1 mg Documented By: RB Proparacaine HCl (Proparacaine 0.5% Ophth Clotilde) 1 drops EYE-BOTH NOW ONE Stop: 11/05/22 08:53 Last Admin: 11/05/22 09:05 Dose: 1 drop Documented By: KARLA Vital Signs Vital signs: Vital Signs - 8 hr 11/05/22 08:24 Temperature 97.8 F Pulse Rate 80 Respiratory Rate 16 Blood Pressure 141/90 H Pulse Oximetry 99 Oxygen Delivery Method Room Air MDM - Eye Problem MDM Narrative Medical decision making narrative: This is a 62-year-old male who presents with erythema tearing and irritation of the right eyelids for the past week patient is felt like a foreign body he has some risk he does leather working, does not normally wear safety goggles but does not recall a particular event. No foreign bodies appreciated on exam including with eyelid flip. Patient does have punctate uptake over the sclera with conjunctival injection and tearing. Suspect conjunctivitis we will cover with antibiotics. Patient does not have a lot of other high-risk factors but discussed follow-up with ophthalmology in the next several days for further evaluation particularly if no resolution with antibiotics. Reviewed return precautions, need for follow-up. Discharge Plan Departure Patient Disposition: Home Clinical Impression: Conjunctivitis Instructions: DI for Conjunctivitis Activity Restrictions/Additional Instructions: Please follow-up with ophthalmology in the next 2-3 days if symptoms are not significantly improved. You can follow up with her regular aircraft log clerk or Dr. Solomon or Dr. Vital, call their office 1st thing tomorrow morning or the following day to set up appointment. Use antibiotics to the affected eye, the right eye every 4 hours while awake (at least 4 times daily) You can take to 1000 mg every 6 hours and/or ibuprofen up to 600 mg every 6 hours as needed for pain. You can use cool compresses to the affected area. Make sure to wash or dispose of any for mites, towels washcloth, etcetera after using as this can transfer infection. Prescription sent to [facility] in [place] Prescription changed to [facility] in [place]. Please return for fevers, rapidly worsening swelling of the eye, decreasing vision, severe pain, swelling of the face, redness that is spreading or other new or concerning changes. Prescriptions: New ofloxacin 0.3 % drops 2 drp EYE-RIGHT .q4wa 10 Days Qty: 5 0RF No Action methocarbamol 500 mg tablet 500 mg PO TID PRN (Reason: muscle spasm) Qty: 20 0RF ketorolac 10 mg tablet 10 mg PO Q8H PRN (Reason: pain) Qty: 14 0RF methocarbamol 500 mg tablet 500 mg PO BEDTIME Qty: 20 0RF diclofenac sodium 1 % gel 4 g topical QID PRN (Reason: leg pain) Qty: 100 0RF Rx Instructions: Apply of pain up to 4 times daily Referrals: Shea Lucia DO [Primary Care Provider] - Jan Solomon MD [Physician] - Stand Alone Forms: Patient Portal/API
[2022-11-05] MEDS: FLUORESCEIN 1 MG STRIP EYE-BOTH (09:04)
[2022-11-05] MEDS: PROPARACAINE 0.5% OPHTH SOL 1 DROPS EYE-BOTH (09:05)
== END 2022-11-05 09:25 | disposition home or self-care (01) ==
PROVIDERS: Emergency Provider Emergency Medicine; PCP Student in an Organized Health Care Education/Training Program
DX: H10.9 Unspecified conjunctivitis (principal)
CPT/HCPCS: 99282

== ENCOUNTER → 2022-11-20 08:01 | Outpatient (CLI) | payer OTHER, SELFPAY ==
--- NOTE | 2022-11-20 | DI.RAD.S_ITS ---
PROCEDURE: XR CERVICAL SPINE 4V OR 5V INDICATIONS: s/p fusion c3-7 TECHNIQUE: 5 views of the cervical spine were acquired. COMPARISON: [facility], CR, XR CERVICAL SPINE 1V, 06/14/2022, 15:25. FINDINGS: Bones: There is prior fusion of cervical spine from C4 through C7 levels. Straightening of normal cervical lordosis is seen. No acute fracture or dislocation. No gross hardware loosening or failure. Degenerative endplate changes are seen at C3-4 level. No suspicious bony lesions. There is decreased range of motion between flexion and extension, with preserved cervical spine alignment. Soft tissues: Prevertebral soft tissues are normal in thickness. IMPRESSION: Post ACDF changes at C4-5 through C6-7 levels with stable cervical spine alignment. No evidence of hardware loosening or failure. No fracture or dislocation. Mild degenerative disc disease at C3-4 level. Decreased range of motion on lateral flexion and extension views with preserved cervical spine alignment. Dictated by: Hubert Montes M.D. on 11/20/2022 at 10:36 Approved by: Hubert Montes M.D. on 11/20/2022 at 10:37
== END ==
PROVIDERS: PCP Student in an Organized Health Care Education/Training Program; Referring Provider Neurological Surgery; Visit Provider Neurological Surgery
DX: M50.31 Other cervical disc degeneration, high cervical region (principal); Z98.1 Arthrodesis status
CPT/HCPCS: 72050

== ENCOUNTER 2023-04-24 08:58 | Emergency (ER) | payer OTHER, SELFPAY ==
[2023-04-24 09:04] VITALS: BP 136/84
[2023-04-24 09:05] VITALS: PULSE 83; RESP 11; O2SAT 99
[2023-04-24 09:08] VITALS: BP 136/84; PULSE 81; RESP 16; TEMP 36.9; O2SAT 99; BMI 28.1
--- NOTE | 2023-04-24 09:10 | ED.GENADULT ---
HPI - General Adult General Chief complaint: Syncope Stated complaint: loc 12 mins t-1/foggy t Time Seen by Provider: 04/24/23 08:59 Source: patient Mode of arrival: Ambulatory Limitations: no limitations History of Present Illness HPI narrative: Patient is a 62-year-old male who is here for evaluation of an episode that occurred yesterday. He states that he went to it regularly scheduled pain clinic visit. He received no new medications. No injections. He stated that they just reviewed the medicines he is on. He does have neuropathy which is why he is going to see the sign painter apprentice. Yesterday afternoon he was texting someone. He stated that there was approximately a 12 minute period of time that he does not remember. This morning he woke up and feels somewhat foggy and shaky. He contact his primary doctor who advised that he come to the emergency department. He stated that prior to the event yesterday he did not have chest pain or shortness of breath or lightheadedness or palpitations. This is never happened to him in the past. He currently is not having any of those symptoms as well. No history of seizures. No history of stroke. Related Data Previous Rx's Medication Instructions Recorded ketorolac 10 mg tablet 10 mg PO Q8H PRN pain #14 tabs 01/23/22 methocarbamol 500 mg tablet 500 mg PO TID PRN muscle spasm #20 01/23/22 tabs diclofenac sodium 1 % topical gel 4 g topical QID PRN leg pain #100 02/06/22 grams methocarbamol 500 mg tablet 500 mg PO BEDTIME #20 tabs 02/06/22 Allergies Allergy/AdvReac Type Severity Reaction Status Date / Time Sulfa (Sulfonamide Allergy Unknown Verified 11/05/22 08:26 Antibiotics) [SULFA (SULFONAMIDE ANTIBIOTICS)] Review of Systems Constitutional Constitutional: Reports system reviewed and no additional complaints, except as documented Cardiovascular Cardiovascular: Reports system reviewed and no additional complaints, except as documented Respiratory Respiratory: Reports system reviewed and no additional complaints, except as documented Gastrointestinal Gastrointestinal: Reports system reviewed and no additional complaints, except as documented Integumentary/Breasts Skin/Breast: Reports system reviewed and no additional complaints, except as documented Neurologic Neurologic: Reports system reviewed and no additional complaints, except as documented Hematologic/Lymphatic On Anticoagulants: No Patient History Medical History Raynauds syndrome History of kidney cancer Breathing-related sleep disorder GERD (gastroesophageal reflux disease) Insomnia Restless legs syndrome (RLS) Snoring Social History Smoking Status: Former smoker Smoking Status: Former smoker alcohol intake frequency: other Substance Use Type: marijuana Exam Initial Vital Signs Initial Vital Signs: Vital Signs Blood Pressure 136/84 04/24/23 09:04 Const General: cooperative, comfortable and No ill appearing HENMT Head: normal to inspection and normocephalic Resp Effort & Inspection: normal respiratory effort Auscultation: clear to auscultation bilaterally Cardio Rate: regular rate Rhythm: regular rhythm GI Inspection: normal to inspection Skin General: no rashes or lesions noted Neuro General: patient alert, patient awake, patient oriented x3 and moves all extremities Speech: speech normal Gait: normal gait Extrem General: normal to inspection and capillary refill normal Course Orders Ordered: ED Orders 04/24/23 09:09 CT head/brain wo con Stat Basic Metabolic Panel Stat Complete Blood Count AUTO DIFF Stat EKG-12 Lead Stat Vital Signs Vital signs: Vital Signs - 8 hr 04/24/23 09:04 04/24/23 09:05 04/24/23 09:08 Temperature 98.4 F Pulse Rate 83 81 Respiratory Rate 11 L 16 Blood Pressure 136/84 136/84 Pulse Oximetry 99 99 Oxygen Delivery Method Room Air 04/24/23 09:22 04/24/23 09:22 Temperature Pulse Rate 74 Respiratory Rate 10 L Blood Pressure 118/76 Pulse Oximetry 96 Oxygen Delivery Method Medical Decision Making Lab Data 04/24/23 09:20 04/24/23 09:20 Labs: Lab Results 04/24/23 Range/Units 09:20 WBC 8.8 (4.5-11.0) X10^3/uL RBC 4.96 (4.5-5.9) X10^6/uL Hgb 14.6 (13.5-17.5) g/dL Hct 43.6 (41-53) % MCV 87.8 (80-100) fL MCH 29.4 (26-34) PG MCHC 33.5 (30-36) % RDW 14.2 (11.6-14.8) % Plt Count 266 (150-400) X10^3/uL Neut % (Auto) 67.9 (50-75) % Lymph % (Auto) 23.1 L (25-40) % Christian % (Auto) 5.3 (3-14) % Eos % (Auto) 3.1 (2-4) % Baso % (Auto) 0.6 (0-2) % Neut # (Auto) 6000 (5600-6096) /uL Lymph # (Auto) 2000 (6218-6853) /uL Christian # (Auto) 500 (0-900) /uL Eos # (Auto) 300 (0-450) /uL Baso # (Auto) 0 (0-100) /uL Sodium 141 (137-145) mmol/L Potassium 3.9 (3.4-5.1) mmol/L Chloride 107 (98-107) mmol/L Carbon Dioxide 28 (22-32) mmol/L BUN 14 (9-20) mg/dL Creatinine 0.84 (0.66-1.25) mg/dL Estimated GFR > 60 (>60) mL/min BUN/Creatinine Ratio 16.7 (6-22) Glucose 100 (80-110) mg/dL Calcium 9.2 (8.4-10.2) mg/dL Imaging Data CT scan - head: Radiologist's Impression: PROCEDURE: CT HEAD/BRAIN WO CON INDICATIONS: syncope TECHNIQUE: Noncontrast 4.5 mm thick angled axial sections acquired from the foramen magnum to the vertex, with coronal and sagittal reformats. For radiation dose reduction, the following was used: automated exposure control, adjustment of mA and/or kV according to patient size. COMPARISON: None. FINDINGS: Image quality: Excellent. CSF spaces: Basal cisterns are patent. No extra-axial fluid collections. Ventricles are normal in size and shape. Brain: No midline shift. No intracranial masses or hemorrhage. Purvis-white matter interface is normal. Skull and face: Calvarium and visualized facial bones are intact, without suspicious lesions. Sinuses: Visualized sinuses and mastoids are clear. IMPRESSION: No CT evidence of acute intracranial process. ECG Data Attestation: I personally reviewed and interpreted this ECG as follows: Interpretation: Sinus rhythm Ventricular rate is 73 Normal axis Normal QRS Normal QTC No ST T wave changes MDM Narrative Medical decision making narrative: Unsure of the exact etiology of the patient's symptoms from yesterday. I have low suspicion that this was a seizure. This was certainly not a CVA. Low suspicion for TIA. Low suspicion for hypoglycemia. His electrolytes are unremarkable. His head CT is unremarkable. He is an unremarkable exam today. We did discuss the possibility of a transient arrhythmia although his EKG today is unremarkable. I discuss this with the patient. No further workup required here in the emergency department. Will have the patient contact his primary doctor for follow-up. He was given return precautions. Discharge Plan Departure Patient Disposition: Home Clinical Impression: Syncope Instructions: Fainting Activity Restrictions/Additional Instructions: Recommend that you continue to take all of your medications as directed. Keep all of your scheduled medical appointments. Return to the emergency department for new or worsening symptoms. Prescriptions: No Action methocarbamol 500 mg tablet 500 mg PO TID PRN (Reason: muscle spasm) Qty: 20 0RF ketorolac 10 mg tablet 10 mg PO Q8H PRN (Reason: pain) Qty: 14 0RF methocarbamol 500 mg tablet 500 mg PO BEDTIME Qty: 20 0RF diclofenac sodium 1 % gel 4 g topical QID PRN (Reason: leg pain) Qty: 100 0RF Rx Instructions: Apply of pain up to 4 times daily Referrals: Shea Lucia DO [Primary Care Provider] - Stand Alone Forms: Patient Portal/API
[2023-04-24 09:22] VITALS: BP 118/76; PULSE 74; RESP 10; O2SAT 96
[2023-04-24 09:23] LABS: Add Manual Diff / Slide Review NO; Basophils Absolute Auto 0 /uL (0-100); Basophils Percent Auto 0.6 % (0-2); Eosinophils Absolute Auto 300 /uL (0-450); Eosinophils Percent Auto 3.1 % (2-4); Hematocrit 43.6 % (41-53); Hemoglobin 14.6 g/dL (13.5-17.5); Lymphocytes Absolute Auto 2000 /uL (1100-4500); Lymphocytes Percent Auto 23.1 % (25-40); Mean Corpuscular HGB Conc 33.5 % (30-36); Mean Corpuscular Hemoglobin 29.4 PG (26-34); Mean Corpuscular Volume 87.8 fL (80-100); Monocytes Absolute Auto 500 /uL (0-900); Monocytes Percent Auto 5.3 % (3-14); Neutrophils Absolute Auto 6000 /uL (1500-7000); Neutrophils Percent Auto 67.9 % (50-75); Platelet Count 266 X10^3/uL (150-400); Red Blood Cell Count 4.96 X10^6/uL (4.5-5.9); Red Cell Distribution Width 14.2 % (11.6-14.8); White Blood Cell Count 8.8 X10^3/uL (4.5-11.0)
--- NOTE | 2023-04-24 09:23 | DI.CT.S_ITS ---
PROCEDURE: CT HEAD/BRAIN WO CON INDICATIONS: syncope TECHNIQUE: Noncontrast 4.5 mm thick angled axial sections acquired from the foramen magnum to the vertex, with coronal and sagittal reformats. For radiation dose reduction, the following was used: automated exposure control, adjustment of mA and/or kV according to patient size. COMPARISON: None. FINDINGS: Image quality: Excellent. CSF spaces: Basal cisterns are patent. No extra-axial fluid collections. Ventricles are normal in size and shape. Brain: No midline shift. No intracranial masses or hemorrhage. Purvis-white matter interface is normal. Skull and face: Calvarium and visualized facial bones are intact, without suspicious lesions. Sinuses: Visualized sinuses and mastoids are clear. IMPRESSION: No CT evidence of acute intracranial process. Dictated by: Silvia Milligan M.D. on 04/24/2023 at 9:29 Approved by: Silvia Milligan M.D. on 04/24/2023 at 9:30
[2023-04-24 09:30] VITALS: BP 119/77; PULSE 72; RESP 18; O2SAT 95
[2023-04-24 09:36] LABS: BUN Creatinine Ratio 16.7 (6-22); Blood Urea Nitrogen 14 mg/dL (9-20); Calcium 9.2 mg/dL (8.4-10.2); Carbon Dioxide 28 mmol/L (22-32); Chloride 107 mmol/L (98-107); Estimated Glomerular Filt Rate > 60 mL/min (>60); Glucose 100 mg/dL (80-110); HEMOLYSIS < 15 (0-50); Potassium 3.9 mmol/L (3.4-5.1); Sodium 141 mmol/L (137-145)
== END 2023-04-24 10:01 | disposition home or self-care (01) ==
PROVIDERS: Emergency Provider Emergency Medicine; PCP Student in an Organized Health Care Education/Training Program
DX: R55 Syncope and collapse (principal); R07.9 Chest pain, unspecified
CPT/HCPCS: 36415; 70450; 80048; 85025; 93005; 93010; 99283; 99284

== ENCOUNTER 2023-11-22 12:03 | Emergency (ER) | payer OTHER, SELFPAY ==
[2023-11-22 12:10] VITALS: BP 123/85; PULSE 87; RESP 18; TEMP 36.7; O2SAT 97; BMI 25.8
--- NOTE | 2023-11-22 12:13 | ED_ITS ---
HPI - General Adult General Chief complaint: Back Pain/Injury Stated complaint: Back pain Time Seen by Provider: 11/22/23 12:13 History of Present Illness HPI narrative: 63-year-old male former smoker with history of chronic pain [facility] He historically has is pain medications filled by [facility] but their office is closed today. He is made multiple attempts through various outpatient options to get his prescription filled in the end was instructed to come here to get it filled until the office opens on Saturday. He denies any new injury or trauma. He has no fever or chills nor nausea, vomiting or diarrhea. No new numbness, tingling or weakness. No trouble controlling bowel or bladder. Related Data Previous Rx's Medication Instructions Recorded ketorolac 10 mg tablet 10 mg PO Q8H PRN pain #14 tabs 01/23/22 methocarbamol 500 mg tablet 500 mg PO TID PRN muscle spasm #20 01/23/22 tabs diclofenac sodium 1 % topical gel 4 g topical QID PRN leg pain #100 02/06/22 grams methocarbamol 500 mg tablet 500 mg PO BEDTIME #20 tabs 02/06/22 oxycodone 5 mg tablet 5 mg PO Q8H PRN pain #12 tabs 11/22/23 Allergies Allergy/AdvReac Type Severity Reaction Status Date / Time Sulfa (Sulfonamide Allergy Unknown Verified 11/05/22 08:26 Antibiotics) [SULFA (SULFONAMIDE ANTIBIOTICS)] Review of Systems Review of Systems Narrative: GENERAL: Denies chills, fatigue, malaise, fever, sweats. HEENT: Denies sinus pain, ear pain, sore throat, difficulty swallowing, dizziness. RESPIRATORY: Denies dyspnea, cough, wheezing, hemoptysis, sputum. CARDIOVASCULAR: Denies chest pain, palpitations, orthopnea, edema, GASTROINTESTINAL: Denies nausea, vomiting, abdominal pain, diarrhea, constipation, melena. : Denies dysuria, frequency, incontinence, hematuria, urinary retention. MUSCULOSKELETAL: See HPI SKIN: Denies rash, skin lesions, or other NEUROLOGIC: See HPI PSYCHIATRIC: No concerning psychosocial issues. 12 point review of systems is negative except for those stated above Patient History Medical History Raynauds syndrome History of kidney cancer Breathing-related sleep disorder GERD (gastroesophageal reflux disease) Insomnia Restless legs syndrome (RLS) Snoring Social History Smoking Status: Former smoker Smoking Status: Former smoker alcohol intake frequency: other Substance Use Type: marijuana Exam Narrative Exam Narrative: GEN: AOx3 and in mild distress EYES: Pupils are equal, round, and reactive to light and accommodation. Extraoccular muscles are intact bilaterally. There is no subconjunctival hemorrhage or exudate. CHEST: Lungs are clear to auscultation bilaterally and free of wheezes, rales, or rhonchi. Heart rate is regular rhythm, there are no murmurs, clicks, rubs, or gallops. There is no chest wall tenderness. ABD: Abdomen is soft and nontender. There is no guarding or rebound. Bowel sounds are normal in all 4 quadrants. There is no mass or organomegaly. EXT: Full painless ROM of all extremities with no loss of sensation or strength. SKIN: Warm, pink, and dry. No erythema or rash Initial Vital Signs Initial Vital Signs: Vital Signs Temperature 98.1 F 11/22/23 12:10 Pulse Rate 87 11/22/23 12:10 Respiratory Rate 18 11/22/23 12:10 Blood Pressure 123/85 11/22/23 12:10 Pulse Oximetry 97 11/22/23 12:10 Oxygen Delivery Method Room Air 11/22/23 12:10 Course Vital Signs Vital signs: Vital Signs - 8 hr 11/22/23 12:10 Temperature 98.1 F Pulse Rate 87 Respiratory Rate 18 Blood Pressure 123/85 Pulse Oximetry 97 Oxygen Delivery Method Room Air Medical Decision Making [facility] Narrative Medical decision making narrative: Multiple etiologies of back pain considered including; Epidural abscess, cauda equina, mass occupying lesion, and other considered Reviewed [place] prescription monitoring and patient is due for a refill, he typically would get oxycodone 5 mg immediate release 3 tablets daily. Prescription written for 12 tablets to get him through the end of the day Saturday. Discharge Plan Departure Patient Disposition: Home Clinical Impression: Chronic pain, Medication refill Instructions: DI for Chronic Pain -- Adult Activity Restrictions/Additional Instructions: *You have been diagnosed with [medication refill] *What to do: *Please continue to take your regular medications as directed. [x ] New medication written as a paper prescription *Please follow up with your primary care provider in 2-3 days, call for an appointment. Let them know you were seen in the Emergency Department and that we ask that you be seen in follow up. We will electronically transmit a record of today's note if your PCP is in our system You have been prescribed a short course of narcotic medications. These are potentially dangerous and addictive medications that should be used carefully. While on these medications you cannot drive or operate heavy machinery. Additionally, you cannot sign legal documents or perform any duties such as this. 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 Please understand that we cannot provide further refills of narcotics or co ntrolled substances through the ED and your pain management will need to be through your Primary Care Provider Prescriptions: New oxycodone 5 mg tablet 5 mg PO Q8H PRN (Reason: pain) Qty: 12 0RF No Action methocarbamol 500 mg tablet 500 mg PO TID PRN (Reason: muscle spasm) Qty: 20 0RF ketorolac 10 mg tablet 10 mg PO Q8H PRN (Reason: pain) Qty: 14 0RF methocarbamol 500 mg tablet 500 mg PO BEDTIME Qty: 20 0RF diclofenac sodium 1 % gel 4 g topical QID PRN (Reason: leg pain) Qty: 100 0RF Rx Instructions: Apply of pain up to 4 times daily Referrals: Shea Lucia DO [Primary Care Provider] - Stand Alone Forms: Patient Portal/API
== END 2023-11-22 12:34 | disposition home or self-care (01) ==
PROVIDERS: Emergency Provider Emergency Medicine; PCP Student in an Organized Health Care Education/Training Program
DX: G89.29 Other chronic pain (principal); Z76.0 Encounter for issue of repeat prescription
CPT/HCPCS: 99281

== ENCOUNTER → 2024-04-07 10:53 | Outpatient (CLI) | payer OTHER, SELFPAY ==
--- NOTE | 2024-04-07 10:54 | DI.US.S_ITS ---
PROCEDURE: US RENAL COMPLETE INDICATIONS: HX RENAL CELL CARCINOMA TECHNIQUE: Real-time scanning was performed of the kidneys and bladder, with image documentation. COMPARISON: [facility], , RENAL COMPLETE, 06/30/2020, 12:34. FINDINGS: Kidneys: Kidneys are normal in size. Right kidney measures 9.9 cm long; left kidney measures 10.3 cm long. Right renal cortical thickness is 1.8 cm; left renal cortical thickness is 2.1 cm. Renal cortical echotexture is normal. No hydronephrosis or nephrolithiasis. No suspicious solid mass lesions. Bladder: Pre-void bladder volume is 193 mL. Post-void residual is 22 mL. Pre-void images demonstrate no intraluminal masses or stones. On pre-void images, both ureteral jets are noted with color Doppler interrogation. (Of note, ureteral jets may not be detectable in up to 25% of cases due to insufficient differences in specific gravity between ureteral and bladder urine). Miscellaneous: No free pelvic fluid. IMPRESSION: No mass identified. No hydronephrosis. Consider further evaluation with renal phase protocol CT or MRI. Dictated by: Neeraj James M.D. on 04/07/2024 at 14:44 Approved by: Neeraj James M.D. on 04/07/2024 at 14:47
== END ==
PROVIDERS: PCP Student in an Organized Health Care Education/Training Program; Referring Provider Student in an Organized Health Care Education/Training Program; Visit Provider Student in an Organized Health Care Education/Training Program
DX: Z85.528 Personal history of other malignant neoplasm of kidney (principal); Z08 Encounter for follow-up examination after completed treatment for malignant neoplasm
CPT/HCPCS: 76770

== ENCOUNTER → 2024-06-09 13:03 | Outpatient (CLI) | payer OTHER, SELFPAY ==
--- NOTE | 2024-06-09 13:04 | DI.MRI.S_ITS ---
PROCEDURE: MR LUMBAR SPINE WO CON INDICATIONS: CHRONIC BILAT LBP/LUMBAR RADIC/SPINAL STENOSIS TECHNIQUE: Noncontrast sagittal T1 spin echo and T2 fast echo, sagittal STIR, and T2 fast spin echo through the lumbar spine. In cases with scoliosis, additional coronal T2 fast spin echo may be performed. COMPARISON: [facility], , MR LUMBAR SPINE WO CON, 05/20/2019, 7:03. FINDINGS: Alignment and Curvature: There is normal bony alignment. Bone Marrow: Chronic degenerative endplate changes L4-5 Spinal Cord: Conus medullaris terminates at the L1 level. Visualized cord demonstrates normal signal and size. Paraspinous Soft Tissues: No paravertebral masses. T12-L1: Disc bulge. Mild central stenosis. No foraminal stenosis L1-L2: No central or foraminal stenosis L2-L3: No central or foraminal stenosis L3-L4: Central disc protrusion results in moderate central stenosis. Mild facet arthropathy. Moderate bilateral foraminal stenosis L4-L5: Disc bulge and arthropathy. Mild central stenosis. Moderate bilateral foraminal stenosis. Incidental high-intensity zone in the posterior annulus reflects annular fissure or tear. L5-S1: Disc bulge and arthropathy. No central stenosis. Moderate right and no left foraminal stenosis. IMPRESSION: Multilevel degenerative disc disease and arthropathy results in varying degrees of central and foraminal stenosis including moderate foraminal stenosis L3-4, L4-5 and L5-S1 Approved by: José Luis Puga M.D. on 06/10/2024 at 17:45
== END ==
PROVIDERS: PCP Student in an Organized Health Care Education/Training Program; Referring Provider Student in an Organized Health Care Education/Training Program; Visit Provider Student in an Organized Health Care Education/Training Program
DX: M51.17 Intervertebral disc disorders with radiculopathy, lumbosacral region (principal); M47.26 Other spondylosis with radiculopathy, lumbar region; M47.27 Other spondylosis with radiculopathy, lumbosacral region; M51.16 Intervertebral disc disorders with radiculopathy, lumbar region; M48.061 Spinal stenosis, lumbar region without neurogenic claudication; M48.07 Spinal stenosis, lumbosacral region; G89.29 Other chronic pain
CPT/HCPCS: 72148

== ENCOUNTER 2024-08-05 08:40 | Emergency (ER) | payer OTHER, SELFPAY ==
[2024-08-05 09:05] VITALS: BP 131/71; PULSE 73; RESP 16; TEMP 36.5; O2SAT 96; BMI 27.3
--- NOTE | 2024-08-05 09:15 | DI.RAD.S_ITS ---
PROCEDURE: XR CHEST 2V INDICATIONS: cough. TECHNIQUE: 2 views of the chest were acquired. COMPARISON: [facility], , XR CHEST 1V, 06/12/2019, 17:12. FINDINGS: Surgical changes and devices: Postfusion changes are noted in visualized lower cervical spine. Lungs and pleura: Lungs are clear. No pleural effusions or pneumothorax. Mediastinum: Mediastinal contours are normal. Heart size is normal. Bones and chest wall: No suspicious bony abnormalities. Soft tissues appear unremarkable. IMPRESSION: No acute cardiopulmonary pathology. Dictated by: Hubert Montes M.D. on 08/05/2024 at 9:54 Approved by: Hubert Montes M.D. on 08/05/2024 at 9:54
[2024-08-05 10:01] LABS: Influenza A - CEPHEID Flu A NEGATIVE (NEGATIVE); Influenza B - CEPHEID Flu B NEGATIVE (NEGATIVE); Respiratory Syncytial Virus Negative (Negative)
[2024-08-05 10:02] LABS: COVID-19 CEPHEID 4-PLEX PCR Negative (Negative)
--- NOTE | 2024-08-05 11:54 | ED.URI ---
HPI - URI/Sore Throat <Victoria Trevino PA-C - Last Filed: 08/05/24 13:01> General Chief Complaint: Upper Respiratory Symptoms Stated Complaint: SOB, Time Seen by Provider: 08/05/24 11:07 Source: patient Mode of arrival: Family Vehicle History of Present Illness HPI Narrative: Mr. Gutierrez Is a pleasant 63-year-old gentleman with a past medical history of chronic pain, GERD, former smoker who presents to the emergency department for congestion, shortness of breath, cough x5 days. Reports he has a history of frequent bronchitis. States over the last 4-5 days he has had a dry cough that is getting slightly more wet but he has also been hearing some expiratory wheezing which is not normal for him, he is never used an inhaler before. He denies pain, sore throat, fevers, vomiting. No known sick contacts. Related Data Previous Rx's Medication Instructions Recorded ketorolac 10 mg tablet 10 mg PO Q8H PRN pain #14 tabs 01/23/22 methocarbamol 500 mg tablet 500 mg PO TID PRN muscle spasm #20 01/23/22 tabs diclofenac sodium 1 % topical gel 4 g topical QID PRN leg pain #100 02/06/22 grams methocarbamol 500 mg tablet 500 mg PO BEDTIME #20 tabs 02/06/22 oxycodone 5 mg tablet 5 mg PO Q8H PRN pain #12 tabs 11/22/23 sodium,potassium,mag sulfates 17.5 See Rx Instructions PO .COMPLEX 06/04/24 gram-3.13 gram-1.6 gram oral soln #354 mL (Suprep Bowel Prep Kit) albuterol sulfate 90 mcg/actuation 1 inh inhalation QID PRN shortness 08/05/24 aerosol inhaler of breath or wheezing #6.7 grams prednisone 20 mg tablet 40 mg (2 x 20 mg) PO DAILY 5 days 08/05/24 #10 tabs Allergies Allergy/AdvReac Type Severity Reaction Status Date / Time Sulfa (Sulfonamide Allergy Unknown Verified 08/05/24 09:14 Antibiotics) [SULFA (SULFONAMIDE ANTIBIOTICS)] Review of Systems <Victoria Trevino PA-C - Last Filed: 08/05/24 13:01> Review of Systems ROS Unobtainable: All systems reviewed & are unremarkable except as noted in HPI and below Patient History <GRAHAM Maloney Last Filed: 08/05/24 13:01> Medical History Raynauds syndrome History of kidney cancer Breathing-related sleep disorder GERD (gastroesophageal reflux disease) Insomnia Restless legs syndrome (RLS) Snoring Social History Smoking Status: Former smoker Smoking Status: Former smoker tobacco type: cigarettes alcohol intake frequency: other Exam <GRAHAM Maloney Last Filed: 08/05/24 13:01> Narrative Exam Narrative: GENERAL: 63 year old patient appears stated age. Well-developed patient, in no acute distress. HEAD: Atraumatic. Normocephalic. NECK: Trachea midline. Cervical ROM intact. CARDIOVASCULAR: Regular rate and rhythm. RESPIRATORY: Nonlabored respirations. Speaking in clear, full sentences. Faint expiratory wheezes in bilateral lower lobes. No coarse breath sounds. Occasional dry cough. EXTREMITIES: No edema or joint tenderness. NEURO: AOx3. Clear speech. Moves all 4 extremities appropriately. SKIN: No rash or erythema of visible areas Initial Vital Signs Initial Vital Signs: Vital Signs Temperature 97.7 F 08/05/24 09:05 Pulse Rate 73 08/05/24 09:05 Respiratory Rate 16 08/05/24 09:05 Blood Pressure 131/71 08/05/24 09:05 Pulse Oximetry 96 08/05/24 09:05 Oxygen Delivery Method Room Air 08/05/24 09:05 <Fatimah Wilder DO - Last Filed: 08/05/24 14:04> Initial Vital Signs Initial Vital Signs: Vital Signs Temperature 97.7 F 08/05/24 09:05 Pulse Rate 73 08/05/24 09:05 Respiratory Rate 16 08/05/24 09:05 Blood Pressure 131/71 08/05/24 09:05 Pulse Oximetry 96 08/05/24 09:05 Oxygen Delivery Method Room Air 08/05/24 09:05 Course <GRAHAM Maloney Last Filed: 08/05/24 13:01> Orders Ordered: ED Orders 08/05/24 09:15 XR chest 2V Stat 08/05/24 09:17 Covid-19 + FLU A/B + RSV - PCR Stat Discontinued Medications Albuterol/Ipratropium (Albuterol/Ipratropium 3 Ml Ampul) 3 ml INH NOW ONE Stop: 08/05/24 12:33 Last Admin: 08/05/24 12:35 Dose: 3 ml Documented By: LORNA Ipratropium [place] (Ipratropium 0.5 Mg/2.5 Ml Neb) 0.5 mg INH NOW ONE Stop: 08/05/24 12:06 Last Admin: 08/05/24 12:48 Dose: Not Given Documented By: JOSE FRANCISCO Prednisone (Prednisone 20 Mg Tablet) 40 mg PO NOW ONE Stop: 08/05/24 12:06 Last Admin: 08/05/24 12:25 Dose: 40 mg Documented By: JOSE FRANCISCO Vital Signs Vital signs: Vital Signs - 8 hr 08/05/24 09:05 08/05/24 13:01 Temperature 97.7 F 97.5 F L Pulse Rate 73 Respiratory Rate 16 16 Blood Pressure 131/71 Pulse Oximetry 96 Oxygen Delivery Method Room Air <Fatimah Wilder DO - Last Filed: 08/05/24 14:04> Orders Ordered: ED Orders 08/05/24 09:15 XR chest 2V Stat 08/05/24 09:17 Covid-19 + FLU A/B + RSV - PCR Stat Discontinued Medications Albuterol/Ipratropium (Albuterol/Ipratropium 3 Ml Ampul) 3 ml INH NOW ONE Stop: 08/05/24 12:33 Last Admin: 08/05/24 12:35 Dose: 3 ml Documented By: LORNA Ipratropium [place] (Ipratropium 0.5 Mg/2.5 Ml Neb) 0.5 mg INH NOW ONE Stop: 08/05/24 12:06 Last Admin: 08/05/24 12:48 Dose: Not Given Documented By: JOSE FRANCISCO Prednisone (Prednisone 20 Mg Tablet) 40 mg PO NOW ONE Stop: 08/05/24 12:06 Last Admin: 08/05/24 12:25 Dose: 40 mg Documented By: JOSE FRANCISCO Vital Signs Vital signs: Vital Signs - 8 hr 08/05/24 09:05 08/05/24 13:01 Temperature 97.7 F 97.5 F L Pulse Rate 73 Respiratory Rate 16 16 Blood Pressure 131/71 Pulse Oximetry 96 Oxygen Delivery Method Room Air [facility] - I/Sore Throat <Victoria Trevino PA-C - Last Filed: 08/05/24 13:01> Medical Records Attestation: I reviewed the patient's medical records. Lab Data Labs: Lab Results 08/05/24 Range/Units 09:17 SARS-CoV-2 (PCR) Negative (Negative) Influenza A (RT-PCR) Flu a negative (NEGATIVE) Influenza B (RT-PCR) Flu b negative (NEGATIVE) RSV (PCR) Negative (Negative) Imaging Data Chest x-ray: Radiologist's Impression: PROCEDURE: XR CHEST 2V INDICATIONS: cough. TECHNIQUE: 2 views of the chest were acquired. COMPARISON: [facility], , XR CHEST 1V, 06/12/2019, 17:12. FINDINGS: Surgical changes and devices: Postfusion changes are noted in visualized lower cervical spine. Lungs and pleura: Lungs are clear. No pleural effusions or pneumothorax. Mediastinum: Mediastinal contours are normal. Heart size is normal. Bones and chest wall: No suspicious bony abnormalities. Soft tissues appear unremarkable. IMPRESSION: No acute cardiopulmonary pathology. [facility] Narrative Medical decision making narrative: 63-year-old gentleman with a past medical history of chronic pain, GERD, former smoker who presents to the emergency department for congestion, shortness of breath, cough x5 days. Differential diagnosis includes but is not limited to pneumonia, bronchitis, viral syndrome, COPD exacerbation, etc. On exam the patient is in no acute distress, nontoxic-appearing, all vital signs within normal limits. He is some faint expiratory wheezes on lung exam. Chest x-ray was obtained in triage which is negative. Patient was treated with a dose of prednisone and a DuoNeb and had resolution of wheezing and reports feeling much better. He was provided with an inhaler spacer, and a prescription for albuterol meter dose inhaler in addition to short course of prednisone. Suspect viral bronchitis, possible underlying COPD given remote history of smoking, advised patient follow up with the PCP for further evaluation. ED return precautions discussed. Advised supportive care as well. He verbalized understanding of all information and is agreeable to the plan, he is stable for discharge home. <Fatimah Wilder DO - Last Filed: 08/05/24 14:04> Lab Data Labs: Lab Results 08/05/24 Range/Units 09:17 SARS-CoV-2 (PCR) Negative (Negative) Influenza A (RT-PCR) Flu a negative (NEGATIVE) Influenza B (RT-PCR) Flu b negative (NEGATIVE) RSV (PCR) Negative (Negative) Discharge Plan Departure Patient Disposition: Home Clinical Impression: Acute viral bronchitis Instructions: DI for Acute Bronchitis Activity Restrictions/Additional Instructions: Thank you for coming to the emergency department. Today your chest x-ray was negative for pneumonia, and your viral swab was negative for flu/ COVID /RSV. You did have some wheezing on your lung exam and you have been prescribed an albuterol inhaler to use as needed for wheezing, in addition to a short course of steroids to complete. Please rest, hydrate, use ibuprofen /Tylenol if needed for pain, and follow up with your primary care doctor. Please return to the emergency department if you have persistent fevers, worsening symptoms, difficulty breathing chest pain or any other concerns. Please follow up with your primary care doctor within the next 2-3 days for ER follow-up. (If you do not have a PCP you can call [phone]. to schedule an appointment with an [facility] Primary Care Provider) IF YOU DEVELOP ANY NEW OR WORSENING SYMPTOMS, RETURN TO THE ER! Please read the attached instructions, they highlight more specific treatments and interventions for you at home. Thank you for letting me participate in your care, Victoria Trevino PA-C Prescriptions: New albuterol sulfate 90 mcg/actuation HFA aerosol inhaler 1 inh inhalation QID PRN (Reason: shortness of breath or wheezing) Qty: 6.7 0RF prednisone 20 mg tablet 40 mg PO DAILY 5 Days Qty: 10 0RF No Action sodium,potassium,mag sulfates [Suprep Bowel Prep Kit] 17.5-3.13-1.6 gram recon soln See Rx Instructions PO .COMPLEX Qty: 354 0RF Rx Instructions: Take as directed by Physician methocarbamol 500 mg tablet 500 mg PO TID PRN (Reason: muscle spasm) Qty: 20 0RF ketorolac 10 mg tablet 10 mg PO Q8H PRN (Reason: pain) Qty: 14 0RF oxycodone 5 mg tablet 5 mg PO Q8H PRN (Reason: pain) Qty: 12 0RF methocarbamol 500 mg tablet 500 mg PO BEDTIME Qty: 20 0RF diclofenac sodium 1 % gel 4 g topical QID PRN (Reason: leg pain) Qty: 100 0RF Rx Instructions: Apply of pain up to 4 times daily Referrals: Shea Lucia DO [Primary Care Provider] - Stand Alone Forms: Patient Portal/API/Survey ED Sign-out <Fatimah Wilder DO - Last Filed: 08/05/24 14:04> Cosign ED Attending Alice Attestation: I was available for consultation.
[2024-08-05] MEDS: predniSONE 20 MG TABLET 40 MG PO (12:25)
[2024-08-05] MEDS: ALBUTEROL/IPRATROPIUM 3 ML AMPUL INH (12:35)
--- NOTE | 2024-08-05 12:50 | PC.NURSE ---
sick for 5 days. did not take anything at home. lower lobe wheezing. smoking history; no nebs at home.
[2024-08-05 13:01] VITALS: RESP 16; TEMP 36.4
== END 2024-08-05 13:02 | disposition home or self-care (01) ==
PROVIDERS: Emergency Medicine; Emergency Provider Physician Assistant; PCP Student in an Organized Health Care Education/Training Program
DX: J20.8 Acute bronchitis due to other specified organisms (principal); Z87.891 Personal history of nicotine dependence
CPT/HCPCS: 0241U; 71046; 94640; 99283

== ENCOUNTER 2024-10-28 09:23 | Day surgery (SDC) | payer OTHER, SELFPAY ==
[2024-10-28 09:50] VITALS: BP 129/79; PULSE 60; RESP 16; TEMP 36.2; O2SAT 98
--- NOTE | 2024-10-28 09:52 | P.HP_ITS ---
History of Present Illness History of Present Illness Date Patient Seen: 10/28/24 Chief complaint: [facility] Medical History Raynauds syndrome History of kidney cancer Breathing-related sleep disorder GERD (gastroesophageal reflux disease) Insomnia Restless legs syndrome (RLS) Snoring Meds Home Medications and Allergies Home Medications Medication Instructions Recorded Confirmed Type ketorolac 10 mg tablet 10 mg PO Q8H PRN pain #14 tabs 01/23/22 Rx methocarbamol 500 mg tablet 500 mg PO TID PRN muscle spasm #20 01/23/22 Rx tabs diclofenac sodium 1 % topical gel 4 g topical QID PRN leg pain #100 02/06/22 Rx grams methocarbamol 500 mg tablet 500 mg PO BEDTIME #20 tabs 02/06/22 Rx oxycodone 5 mg tablet 5 mg PO Q8H PRN pain #12 tabs 11/22/23 Rx albuterol sulfate 90 mcg/actuation 1 inh inhalation QID PRN shortness 08/05/24 Rx aerosol inhaler of breath or wheezing #6.7 grams sodium,potassium,mag sulfates 17.5 See Rx Instructions PO .COMPLEX 09/24/24 Rx gram-3.13 gram-1.6 gram oral soln #354 mL (Suprep Bowel Prep Kit) Allergies Allergy/AdvReac Type Severity Reaction Status Date / Time Sulfa (Sulfonamide Allergy Unknown Verified 10/28/24 09:50 Antibiotics) [SULFA (SULFONAMIDE ANTIBIOTICS)] Exam Narrative Exam Narrative: Oropharynx free of lesions Chest clear to auscultation percussion Cardiac exam reveals no S3 or murmur Assessment & Plan Assessment & Plan narrative: Need for follow-up colonoscopy. Last 11-12 years ago. Asymptomatic. Risks, benefits, alternatives have been explained. Time-Based Coding :: [TOTAL MINUTES] spent with patient and on the chart (including review of chart, obtaining history, exam, reviewing outside data, placing orders, documenting exam and treatment plan, and counseling patient) on [DATE]. [employer] Consumer Safety Inspector Document charge(s): No
--- NOTE | 2024-10-28 09:53 | PM.OP.COLON ---
Operative Date/Time/Diagnoses Date of procedure: 10/28/24 Time of procedure: 10:57 Pre-op diagnosis: See indication and findings Post-op diagnosis: same Procedure & Clinicians Study performed: Colonoscopy Same procedure as scheduled: Yes Indications: Screening Surgeon: Svitlana Kelley Procedure Notes Procedure in detail: After informed consent was obtained the patient was placed in left lateral decubitus position. The video colonoscope was introduced the rectum slowly advanced towards the cecum. Preparation was good. There was a very difficult to pass spenic flexure - pediatric scope was substituted. Eventually the scope was passed to the cecum. On slow withdrawal mucosa was carefully examined. The scope was removed. The patient tolerated procedure well. Blood loss none Complications none Sedation mac Findings 1. Quite tortuous colon particularly at the splenic flexure. Otherwise negative colonoscopy to cecum Patient should have follow-up colonoscopy in 10 years
[2024-10-28] MEDS: LACTATED RINGERS 1,000 ML 42 ML IV (10:01)
[2024-10-28 11:04] VITALS: BP 122/88; PULSE 78; RESP 20; TEMP 36.4; O2SAT 96
[2024-10-28 11:12] VITALS: BP 125/75; PULSE 65; RESP 14; TEMP 36.4; O2SAT 98
== END 2024-10-28 11:21 | disposition home or self-care (01) ==
PROVIDERS: PCP Student in an Organized Health Care Education/Training Program; Referring Provider Internal Medicine Gastroenterology; Visit Provider Internal Medicine Gastroenterology
PROC: 0DJD8ZZ Inspection of Lower Intestinal Tract, Via Natural or Artificial Opening Endoscopic (ICD-10-PCS; CPT 45378; principal; 2024-10-28 10:30)
DX: Z12.11 Encounter for screening for malignant neoplasm of colon (principal)
CPT/HCPCS: 45378; J2704